=== PATIENT | male | born 1945 | race Caucasian/White ===

== ENCOUNTER 2018-12-26 21:52 | Inpatient (IN) | payer MEDICARE, OTHER, SELFPAY ==
[2018-12-26 21:55] VITALS: BP 149/80; PULSE 70; RESP 15; TEMP 36.5; O2SAT 99; BMI 25.8
--- NOTE | 2018-12-26 21:58 | DI.RAD.S_ITS ---
PROCEDURE: XR HIP W PEL IF DONE RT 2V INDICATIONS: right hip pain after fall TECHNIQUE: AP pelvis with lateral view(s) of the right hip. COMPARISON: None. FINDINGS: Bones: No dislocations. Pelvic ring appears intact. No suspicious bony lesions. There is a transverse fracture across the right femoral neck, mildly angulated and slightly impacted. Soft tissues: The visualized bowel gas pattern is normal. No suspicious soft tissue calcifications. IMPRESSION: The acute transverse right femoral neck fracture. Orthopedic consultation has been obtained. Dictated by: Aniceto Kimball M.D. on 12/27/2018 at 8:22 Approved by: Aniceto Kimball M.D. on 12/27/2018 at 8:26
--- NOTE | 2018-12-26 22:27 | ED.LOWEXIN ---
HPI - Extremity Injury (Lower) General Chief Complaint: Extremity Injury, Lower Stated Complaint: RT HIP PAIN, UNABLE TO STAND Time Seen by Provider: 12/26/18 22:27 Source: patient and family Limitations: no limitations History of Present Illness HPI Narrative: 73-year-old male nonsmoker, very healthy male presents with his in the chief complaint of severe right hip pain. patient plays basketball multiple times a week and fell onto his right hip this evening while playing. He now has excruciating pain with range of motion and cannot put any weight on his leg. Even when laying flat any attempts at flexing, extending or internal or external rotation resulted in excruciating pain. He denies any other injury. He denies numbness, tingling or weakness. He denies fever or shaking chills. MD complaint: hip injury Onset (ago): hour(s) Type of Injury: blunt Place: other Severity: severe Relieving factors: immobilization and rest Exacerbating factors: weight bearing, movement and palpation Context: fall and direct blow Associated symptoms: unable to bear weight Other symptoms: none Related Data Home Medications Medication Instructions Recorded Confirmed betamethasone dipropionate 1 brunilda TOPICAL BID PRN 12/27/18 12/27/18 Allergies Allergy/AdvReac Type Severity Reaction Status Date / Time No Known Drug Allergies Allergy Verified 12/26/18 23:36 Review of Systems Constitutional Denies chills, Denies fever(s), Denies lethargy and Denies weakness Eyes Denies change in vision, Denies eye discharge, Denies irritation and Denies loss of vision ENT Ears, Nose, Mouth, and Throat: Denies change in voice, Denies neck pain and Denies sore throat Cardiovascular Denies chest pain, Denies irregular heart rhythm, Denies lightheadedness, Denies palpitations, Denies dyspnea, Denies dyspnea on exertion and Denies orthopnea Respiratory Denies cough, Denies dyspnea, Denies dyspnea on exertion and Denies wheezing Gastrointestinal Gastrointestinal: Denies abdominal pain, Denies change in bowel habits, Denies diarrhea, Denies nausea and Denies vomiting Genitourinary Denies hematuria, Denies flank pain, Denies urinary incontinence and Denies urinary urgency Musculoskeletal Reports limited range of motion and Denies neck pain Integumentary/Breasts Denies pruritus, Denies erythema, Denies rash and Denies wounds Neurologic Denies confusion, Denies loss of vision and Denies weakness Psychiatric Denies anxiety, Denies confusion, Denies depression, Denies homicidal ideation and Denies suicidal ideation Endocrine Denies palpitations Hematologic/Lymphatic Denies easy bruising Allergic/Immunologic Denies wheezing [facility] Medical History Eczema (Chronic) Migraines (Chronic ~1979) Chicken pox (Resolved ~1952) Surgical History Anesthesia (Resolved) Status post colonoscopy Status post hernia repair (~1960) Status post laparoscopy (~1979) Status post laparoscopy (~1999) Family History (Updated 09/22/16 @ 00:00 by Conversion Provider) Father Cancer Heart disease Mother Hypertension High cholesterol Social History household members: spouse Smoking Status: Never smoker alcohol intake: never Family History Father Cancer Heart disease Mother Hypertension High cholesterol Social History household members: spouse Smoking Status: Never smoker alcohol intake: never Exam Narrative Exam Narrative: GENERAL: 73-year-old male, appears younger than stated age, resting comfortably HEAD: Atraumatic. Normocephalic. No temporal or scalp tenderness. EYES: Pupils equal round and reactive. Extraocular motions intact. No scleral icterus. No injection or drainage. ENT: Nose without bleeding, purulent drainage or septal hematoma. Throat without erythema, tonsillar hypertrophy or exudate. Uvula midline. Airway patent. NECK: Trachea midline. No JVD or lymphadenopathy. Supple, nontender, no meningeal signs. CARDIOVASCULAR: Regular rate and rhythm without murmurs, gallops, or rubs. RESPIRATORY: Clear to auscultation. Breath sounds equal bilaterally. No wheezes, rales, or rhonchi. GASTROINTESTINAL: Abdomen soft, non-tender, nondistended. No hepato-splenomegaly, or palpable masses. No guarding. EXTREMITIES: No shortening or external rotation but severe pain to palpation of right hip. This is closed, isolated and neurovascularly intact BACK: Nontender without deformity or crepitance. No flank tenderness. NEURO: AOx3. SKIN: No rash or erythema. Initial Vital Signs Initial Vital Signs: Vital Signs Temperature 97.7 F 12/26/18 21:55 Pulse Rate 70 12/26/18 21:55 Respiratory Rate 15 12/26/18 21:55 Blood Pressure 149/80 H 12/26/18 21:55 Pulse Oximetry 99 12/26/18 21:55 Course Orders Ordered: ED Orders 12/26/18 21:58 XR hip w pel if done RT 2V Stat 12/26/18 22:55 Basic Metabolic Panel Stat Complete Blood Count AUTO DIFF Stat Prothrombin Time INR Stat 12/27/18 00:04 Consult to Orthopedic Surgery Routine XR chest 1V Stat 12/27/18 05:00 EKG-12 Lead Stat Alprazolam (Xanax) 0.125 mg PO BEDTIME PRN PRN Reason: Insomnia Last Admin: 12/27/18 02:10 Dose: 0.125 mg Sodium Chloride (Normal Saline 0.9%) 1,000 mls @ 125 mls/hr IV CONT JEAN-PIERRE Last Admin: 12/27/18 00:20 Dose: 125 mls/hr HYDROMORPHONE OPERATIONS MANAGER/COORDINATOR (6MG/30ML) (Dilaudid Medical Research Associate (6mg/30ml)) 6 mg in 30 mls @ 0 mls/hr IV Q8HR PRN PRN Reason: Pain, Severe (7-10) Last Admin: 12/27/18 00:24 Dose: 0 mls/hr Naloxone HCl (Narcan) 0.2 mg IV Q2MIN PRN; Protocol PRN Reason: Opiate Reversal Ondansetron HCl (Zofran) 4 mg IV Q4HR PRN PRN Reason: Nausea And Vomiting Consultations Consultation #1: call to Dr. Varela, he has viewed images. I was on phone with another provider, arranging for transfer to another hospital and was unable to speak to him. Consultation #2: Call to Dr. Aparicio, [place] for provider backshoe person for Dr. Anne. He is happy to accept patient. Eventual call to Dr. Mario whom is correct provider backshoe person for Dr. Anne Vital Signs - 8 hr 12/26/18 21:55 12/26/18 23:05 12/26/18 23:30 Temperature 97.7 F Pulse Rate 70 74 76 Respiratory Rate 15 18 16 Blood Pressure 149/80 H Blood Pressure [Left Arm] 152/74 H 151/71 H Pulse Oximetry 99 99 96 04/10/19 00:32 Temperature 98.8 F Pulse Rate 76 Respiratory Rate 16 Blood Pressure 144/70 H Blood Pressure [Left Arm] Pulse Oximetry 98 MDM - Extremity Injury (Lower) Lab Data Result diagrams: 12/26/18 22:55 12/26/18 22:55 Lab Results 12/26/18 12/26/18 12/26/18 Range/Units 22:55 22:55 22:55 WBC 10.4 (4.5-11.0) X10^3/uL RBC 5.12 (4.5-5.9) X10^6/uL Hgb 15.8 (13.5-17.5) g/dL Hct 45.4 (41-53) % MCV 88.8 (80-100) fL MCH 30.8 (26-34) PG MCHC 34.7 (30-36) % RDW 14.0 (11.6-14.8) % Plt Count 140 L (150-400) X10^3/uL Neut % (Auto) 77.2 H (50-75) % Lymph % (Auto) 12.8 L (25-40) % [place] % (Auto) 8.3 (3-14) % Eos % (Auto) 1.3 L (2-4) % Baso % (Auto) 0.4 (0-2) % Neut # (Auto) 8000 H (0067-2063) /uL Lymph # (Auto) 1300 (2789-6844) /uL [place] # (Auto) 900 (0-900) /uL Eos # (Auto) 100 (0-450) /uL Baso # (Auto) 0 (0-100) /uL PT 10.8 (10.1-12.7) SECONDS INR 0.9 (0.9-1.3) Sodium 139 (137-145) mmol/L Potassium 4.7 (3.4-5.1) mmol/L Chloride 105 (98-107) mmol/L Carbon Dioxide 27 (22-32) mmol/L BUN 23 H (9-20) mg/dL Creatinine 0.80 (0.66-1.25) mg/dL Estimated GFR > 60.0 (>60) mL/min BUN/Creatinine Ratio 28.8 H (6-22) Glucose 105 (80-110) mg/dL Calcium 9.3 (8.4-10.2) mg/dL Imaging Data Hip Xray: Attestation: I personally reviewed and interpreted this imaging study as follows: My impression: R femoral neck fx Discharge Plan Departure Patient Disposition: Admitted As Inpatient Clinical Impression: Fracture of femur Qualifiers: Encounter type: initial encounter Femur location: neck Fracture type: closed Laterality: right Qualified Code(s): S72.001A - Fracture of unspecified part of neck of right femur, initial encounter for closed fracture Discharge Date/Time: 12/27/18 00:16 Interventions: ED Discharge Assessment Last Done: 12/27/18 00:10 Admit Date/Time: 12/26/18 23:35 Admit Provider: Len Aparicio
[2018-12-26 23:05] VITALS: BP 152/74; PULSE 74; RESP 18; O2SAT 99
[2018-12-26 23:10] LABS: Add Manual Diff / Slide Review NO; Basophils Absolute Auto 0 /uL (0-100); Basophils Percent Auto 0.4 % (0-2); Eosinophils Absolute Auto 100 /uL (0-450); Eosinophils Percent Auto 1.3 % (2-4); Hematocrit 45.4 % (41-53); Hemoglobin 15.8 g/dL (13.5-17.5); Lymphocytes Absolute Auto 1300 /uL (1100-4500); Lymphocytes Percent Auto 12.8 % (25-40); Mean Corpuscular HGB Conc 34.7 % (30-36); Mean Corpuscular Hemoglobin 30.8 PG (26-34); Mean Corpuscular Volume 88.8 fL (80-100); Monocytes Absolute Auto 900 /uL (0-900); Monocytes Percent Auto 8.3 % (3-14); Neutrophils Absolute Auto 8000 /uL (1500-7000); Neutrophils Percent Auto 77.2 % (50-75); Platelet Count 140 X10^3/uL (150-400); Red Blood Cell Count 5.12 X10^6/uL (4.5-5.9); White Blood Cell Count 10.4 X10^3/uL (4.5-11.0)
[2018-12-26 23:11] LABS: INR 0.9 (0.9-1.3); Prothrombin Time 10.8 SECONDS (10.1-12.7)
[2018-12-26 23:15] LABS: BUN Creatinine Ratio 28.8 (6-22); Blood Urea Nitrogen 23 mg/dL (9-20); Calcium 9.3 mg/dL (8.4-10.2); Carbon Dioxide 27 mmol/L (22-32); Chloride 105 mmol/L (98-107); Estimated Glomerular Filt Rate > 60.0 mL/min (>60); Glucose 105 mg/dL (80-110); HEMOLYSIS 28 (0-50); Potassium 4.7 mmol/L (3.4-5.1); Sodium 139 mmol/L (137-145)
[2018-12-26 23:30] VITALS: BP 151/71; PULSE 76; RESP 16; O2SAT 96
[2018-12-27] VITALS (21 sets, daily range): BP systolic 115–167; BP diastolic 58–73; PULSE 61–90; RESP 10–20; TEMP 35.7–37.6; O2SAT 94–100; BMI 25.9
--- NOTE | 2018-12-27 | DI.RAD.S_ITS ---
PROCEDURE: XR HIP W PEL IF DONE RT 2V INDICATIONS: RIGHT HIP LISSA SCREW PLACEMENT TECHNIQUE: 2 view(s) of the hip acquired. COMPARISON: [facility], CR, XR HIP W PEL IF DONE RT 2V, 12/26/2018, 22:05. FINDINGS: Imaging utilized for pinning of a right femoral neck fracture with 3 cancellous screws. No evidence of hardware failure or loosening. Upper appearance. IMPRESSION: Expected operative appearance of femoral neck ORIF. Dictated by: Man Pulliam M.D. on 12/27/2018 at 18:43 Approved by: Man Pulliam M.D. on 12/27/2018 at 18:44
--- NOTE | 2018-12-27 00:04 | DI.RAD.S_ITS ---
PROCEDURE: XR CHEST 1V INDICATIONS: pre op TECHNIQUE: One view of the chest was acquired. COMPARISON: None. FINDINGS: Surgical changes and devices: None. Lungs and pleura: Lungs are near-normal, with a small degree of interstitial prominence bilaterally perhaps reflecting prior smoking history versus age related pulmonary degenerative change.. No pleural effusions or pneumothorax. Mediastinum: Mediastinal contours appear normal. Heart size is normal. Bones and chest wall: No suspicious bony lesions. Overlying soft tissues appear unremarkable. IMPRESSION: Very mild interstitial prominence, no pneumonia or neoplasm found, no contraindication to surgical intervention. Dictated by: Aniceto Kimball M.D. on 12/27/2018 at 8:21 Approved by: Aniceto Kimball M.D. on 12/27/2018 at 8:22
[2018-12-27] MEDS: SODIUM CHLORIDE 0.9% 1,000 ML 125 ML IV ×2 (00:20→15:52)
[2018-12-27] MEDS: HYDROMORPHONE PCA (6MG/30ML) 6 MG/30 ML PCA.VIAL IV (00:24)
[2018-12-27] MEDS: ALPRAZolam 0.25 MG TABLET 0.125 MG PO (02:10)
--- NOTE | 2018-12-27 02:13 | PC.ADMIT ---
Addendum entered by Gerda Grossman R.N. 12/27/18 05:51: BRIDGE DESIGN ENGINEER reports patient complaining of nausea. When talking to patient he reports he starting having increased salivation causing him to think he would have emesis but symptom now resolved. Does complain of dry mouth so provided mouth swabs due to NPO status. States pain is very tolerable at 1/10 and has used 3.4mg of Dilaudid since admission. Does state he is feeling dizzy this morning so discussed backing off on pain medication but not so that he is unable to tolerate the pain. Provided ice pack for comfort. Original Note: 0020 Patient admitted to room 209 per stretcher from ER. Reports he tripped while playing basketball and now has a right hip fx. Patient is alert and oriented but TEJON and bilateral hearing aids are at home. Breath sounds CTA with RA sat of 98%. HRR with BP of 144/70. Denies nausea. BT present and abdomen is soft. Currently with indwelling catheter which is draining clear renetta urine. Able to shift self to position of comfort but unable to tolerate lying on either side for any length of time. Complains of 2/10 right hip pain radiating into groin. FORGING ENGINEER initiated and patient instructed in use of FORGING ENGINEER; verbalizes understanding. Ice applied for additional comfort. CMS is intact. Has some flat, crystal lesions on bilateral anterior shins. Reports eczema intermittently at base of skull posteriorly but none noted at this time. Has hx of painless migraines which presents with an aura followed by numbness in fingers of left hand. Fall risk score is high; bed alarm is activated. Instructed in use of bed controls and call light. 0200 Patient requests Xanax to help with insomnia (has used in past when on airline flights and needed to sleep). Order obtained from Dr Mario via Dr Wisdom. [email or web address] [facility] Admission Note: The patient,Heraclio Mcdowell,73 y/o, was given written information regarding hospital policies, unit procedures and contact persons. Patient's smoking status: Never smoker. Vital Signs - 8 hr 12/26/18 21:55 12/26/18 23:05 12/26/18 23:30 Temperature 97.7 F Pulse Rate 70 74 76 Respiratory Rate 15 18 16 Blood Pressure 149/80 H Blood Pressure [Left Arm] 152/74 H 151/71 H Pulse Oximetry 99 99 96 12/27/18 00:32 Temperature 98.8 F Pulse Rate 76 Respiratory Rate 16 Blood Pressure 144/70 H Blood Pressure [Left Arm] Pulse Oximetry 98
--- NOTE | 2018-12-27 04:40 | ED_ITS ---
HPI - Extremity Injury (Lower) General Chief Complaint: Extremity Injury, Lower Stated Complaint: RT HIP PAIN, UNABLE TO STAND Time Seen by Provider: 12/26/18 22:27 Source: patient and family Limitations: no limitations History of Present Illness HPI Narrative: 73-year-old male nonsmoker, very healthy male presents with his in the chief complaint of severe right hip pain. patient plays basketball multiple times a week and fell onto his right hip this evening while playing. He now has excruciating pain with range of motion and cannot put any weight on his leg. Even when laying flat any attempts at flexing, extending or internal or external rotation resulted in excruciating pain. He denies any other injury. He denies numbness, tingling or weakness. He denies fever or shaking chills. MD complaint: hip injury Onset (ago): hour(s) Type of Injury: blunt Place: other Severity: severe Relieving factors: immobilization and rest Exacerbating factors: weight bearing, movement and palpation Context: fall and direct blow Associated symptoms: unable to bear weight Other symptoms: none Related Data Home Medications Medication Instructions Recorded Confirmed betamethasone dipropionate 1 brunilda TOPICAL BID PRN 12/27/18 12/27/18 Allergies Allergy/AdvReac Type Severity Reaction Status Date / Time No Known Drug Allergies Allergy Verified 12/26/18 23:36 Review of Systems Constitutional Denies chills, Denies fever(s), Denies lethargy and Denies weakness Eyes Denies change in vision, Denies eye discharge, Denies irritation and Denies loss of vision ENT Ears, Nose, Mouth, and Throat: Denies change in voice, Denies neck pain and Denies sore throat Cardiovascular Denies chest pain, Denies irregular heart rhythm, Denies lightheadedness, Denies palpitations, Denies dyspnea, Denies dyspnea on exertion and Denies orthopnea Respiratory Denies cough, Denies dyspnea, Denies dyspnea on exertion and Denies wheezing Gastrointestinal Gastrointestinal: Denies abdominal pain, Denies change in bowel habits, Denies diarrhea, Denies nausea and Denies vomiting Genitourinary Denies hematuria, Denies flank pain, Denies urinary incontinence and Denies urinary urgency Musculoskeletal Reports limited range of motion and Denies neck pain Integumentary/Breasts Denies pruritus, Denies erythema, Denies rash and Denies wounds Neurologic Denies confusion, Denies loss of vision and Denies weakness Psychiatric Denies anxiety, Denies confusion, Denies depression, Denies homicidal ideation and Denies suicidal ideation Endocrine Denies palpitations Hematologic/Lymphatic Denies easy bruising Allergic/Immunologic Denies wheezing [facility] Medical History Eczema (Chronic) Migraines (Chronic ~1979) Chicken pox (Resolved ~1952) Surgical History Anesthesia (Resolved) Status post colonoscopy Status post hernia repair (~1960) Status post laparoscopy (~1979) Status post laparoscopy (~1999) Family History (Updated 09/22/16 @ 00:00 by Conversion Provider) Father Cancer Heart disease Mother Hypertension High cholesterol Social History household members: spouse Smoking Status: Never smoker alcohol intake: never Family History Father Cancer Heart disease Mother Hypertension High cholesterol Social History household members: spouse Smoking Status: Never smoker alcohol intake: never Exam Narrative Exam Narrative: GENERAL: 73-year-old male, appears younger than stated age, resting comfortably HEAD: Atraumatic. Normocephalic. No temporal or scalp tenderness. EYES: Pupils equal round and reactive. Extraocular motions intact. No scleral icterus. No injection or drainage. ENT: Nose without bleeding, purulent drainage or septal hematoma. Throat without erythema, tonsillar hypertrophy or exudate. Uvula midline. Airway patent. NECK: Trachea midline. No JVD or lymphadenopathy. Supple, nontender, no meningeal signs. CARDIOVASCULAR: Regular rate and rhythm without murmurs, gallops, or rubs. RESPIRATORY: Clear to auscultation. Breath sounds equal bilaterally. No wheezes, rales, or rhonchi. GASTROINTESTINAL: Abdomen soft, non-tender, nondistended. No hepato- splenomegaly, or palpable masses. No guarding. EXTREMITIES: No shortening or external rotation but severe pain to palpation of right hip. This is closed, isolated and neurovascularly intact BACK: Nontender without deformity or crepitance. No flank tenderness. NEURO: AOx3. SKIN: No rash or erythema. Initial Vital Signs Initial Vital Signs: Vital Signs Temperature 97.7 F 12/26/18 21:55 Pulse Rate 70 12/26/18 21:55 Respiratory Rate 15 12/26/18 21:55 Blood Pressure 149/80 H 12/26/18 21:55 Pulse Oximetry 99 12/26/18 21:55 Course Orders Ordered: ED Orders 12/26/18 21:58 XR hip w pel if done RT 2V Stat 12/26/18 22:55 Basic Metabolic Panel Stat Complete Blood Count AUTO DIFF Stat Prothrombin Time INR Stat 12/27/18 00:04 Consult to Orthopedic Surgery Routine XR chest 1V Stat 12/27/18 05:00 EKG-12 Lead Stat Alprazolam (Xanax) 0.125 mg PO BEDTIME PRN PRN Reason: Insomnia Last Admin: 12/27/18 02:10 Dose: 0.125 mg Sodium Chloride (Normal Saline 0.9%) 1,000 mls @ 125 mls/hr IV CONT JEAN-PIERRE Last Admin: 12/27/18 00:20 Dose: 125 mls/hr HYDROMORPHONE SOFTWARE QUALITY ASSURANCE ENGINEER (6MG/30ML) (Dilaudid Broach Operator (6mg/30ml)) 6 mg in 30 mls @ 0 mls/hr IV Q8HR PRN PRN Reason: Pain, Severe (7-10) Last Admin: 12/27/18 00:24 Dose: 0 mls/hr Naloxone HCl (Narcan) 0.2 mg IV Q2MIN PRN; Protocol PRN Reason: Opiate Reversal Ondansetron HCl (Zofran) 4 mg IV Q4HR PRN PRN Reason: Nausea And Vomiting Consultations Consultation #1: call to Dr. Varela, he has viewed images. I was on phone with another provider, arranging for transfer to another hospital and was unable to speak to him. Consultation #2: Call to Dr. Aparicio, [place] for provider extrusion line operator for Dr. Anne. He is happy to accept patient. Eventual call to Dr. Mario whom is correct provider extrusion line operator for Dr. Anne Vital Signs - 8 hr 12/26/18 21:55 12/26/18 23:05 12/26/18 23:30 Temperature 97.7 F Pulse Rate 70 74 76 Respiratory Rate 15 18 16 Blood Pressure 149/80 H Blood Pressure [Left Arm] 152/74 H 151/71 H Pulse Oximetry 99 99 96 04/10/19 00:32 Temperature 98.8 F Pulse Rate 76 Respiratory Rate 16 Blood Pressure 144/70 H Blood Pressure [Left Arm] Pulse Oximetry 98 MDM - Extremity Injury (Lower) Lab Data Result diagrams: 12/26/18 22:55 12/26/18 22:55 Lab Results 12/26/18 12/26/18 12/26/18 Range/Units 22:55 22:55 22:55 WBC 10.4 (4.5-11.0) X10^3/uL RBC 5.12 (4.5-5.9) X10^6/uL Hgb 15.8 (13.5-17.5) g/dL Hct 45.4 (41-53) % MCV 88.8 (80-100) fL MCH 30.8 (26-34) PG MCHC 34.7 (30-36) % RDW 14.0 (11.6-14.8) % Plt Count 140 L (150-400) X10^3/uL Neut % (Auto) 77.2 H (50-75) % Lymph % (Auto) 12.8 L (25-40) % [place] % (Auto) 8.3 (3-14) % Eos % (Auto) 1.3 L (2-4) % Baso % (Auto) 0.4 (0-2) % Neut # (Auto) 8000 H (0894-2991) /uL Lymph # (Auto) 1300 (1686-0989) /uL [place] # (Auto) 900 (0-900) /uL Eos # (Auto) 100 (0-450) /uL Baso # (Auto) 0 (0-100) /uL PT 10.8 (10.1-12.7) SECONDS INR 0.9 (0.9-1.3) Sodium 139 (137-145) mmol/L Potassium 4.7 (3.4-5.1) mmol/L Chloride 105 (98-107) mmol/L Carbon Dioxide 27 (22-32) mmol/L BUN 23 H (9-20) mg/dL Creatinine 0.80 (0.66-1.25) mg/dL Estimated GFR > 60.0 (>60) mL/min BUN/Creatinine Ratio 28.8 H (6-22) Glucose 105 (80-110) mg/dL Calcium 9.3 (8.4-10.2) mg/dL Imaging Data Hip Xray: Attestation: I personally reviewed and interpreted this imaging study as follows: My impression: R femoral neck fx Discharge Plan Departure Patient Disposition: Admitted As Inpatient Clinical Impression: Fracture of femur Qualifiers: Encounter type: initial encounter Femur location: neck Fracture type: closed Laterality: right Qualified Code(s): S72.001A - Fracture of unspecified part of neck of right femur, initial encounter for closed fracture Discharge Date/Time: 12/27/18 00:16 Interventions: ED Discharge Assessment Last Done: 12/27/18 00:10 Admit Date/Time: 12/26/18 23:35 Admit Provider: Len Aparicio
--- NOTE | 2018-12-27 06:48 | P.CONS_ITS ---
History of Present Illness Date Patient Seen: 12/27/18 Time Patient Seen: 06:30 Chief complaint: RT HIP PAIN, UNABLE TO STAND Reason for consult: Right hip and groin pain Requesting provider: Guanaco Wisdom Narrative: Patient is a healthy 73-year-old gentleman who was playing basketball last evening. He attempted to drive on a larger opponent, ran into the opponent and fell down landing directly on his right hip. He was unable to arise and was taken to [facility] Emergency room for evaluation. Radiographs there revealed a minimally displaced right femoral neck fracture. Orthopedic consultation has been obtained for definitive management of the fracture. [facility] Medical History Eczema (Chronic) Migraines (Chronic ~1979) Chicken pox (Resolved ~1952) Surgical History Anesthesia (Resolved) Status post colonoscopy Status post hernia repair (~1960) Status post laparoscopy (~1979) Status post laparoscopy (~1999) Family History Father Cancer Heart disease Mother Hypertension High cholesterol Social History household members: spouse Smoking Status: Never smoker alcohol intake: never Family History Father Cancer Heart disease Mother Hypertension High cholesterol Social History household members: spouse Smoking Status: Never smoker alcohol intake: never Meds Home Medications Medication Instructions Recorded Confirmed Type betamethasone dipropionate 1 brunilda TOPICAL BID PRN 12/27/18 12/27/18 History Allergies Allergy/AdvReac Type Severity Reaction Status Date / Time No Known Drug Allergies Allergy Verified 12/26/18 23:36 Review of Systems Review of Systems All systems reviewed & are unremarkable except as noted in HPI and below Musculoskeletal Comments: Right groin pain and inability to walk. Exam Vital Signs (past 8 hours): - 12/26/18 23:05 12/26/18 23:30 12/27/18 00:32 Temperature 98.8 F Pulse Rate 74 76 76 Respiratory Rate 18 16 16 Blood Pressure 144/70 H Blood Pressure [Left Arm] 152/74 H 151/71 H Pulse Oximetry 99 96 98 12/27/18 05:41 Temperature 98.4 F Pulse Rate 70 Respiratory Rate 16 Blood Pressure 127/69 Blood Pressure [Left Arm] Pulse Oximetry 94 Oxygen Delivery Method Room Air Oxygen Flow Rate 0 Narrative Exam Narrative: Skin over the proposed incision sites on the right hip is intact. There is pain with logroll of the right hip. Calf is soft. Light touch and motion are intact in the right foot. Length and rotation of the right lower extremity appear to be normal. Objective Labs Result Diagrams: 12/26/18 22:55 12/26/18 22:55 Labs: Laboratory Results - last 24 hr 12/26/18 12/26/18 12/26/18 22:55 22:55 22:55 WBC 10.4 RBC 5.12 Hgb 15.8 Hct 45.4 MCV 88.8 MCH 30.8 MCHC 34.7 RDW 14.0 Plt Count 140 L Neut % (Auto) 77.2 H Lymph % (Auto) 12.8 L [place] % (Auto) 8.3 Eos % (Auto) 1.3 L Baso % (Auto) 0.4 Neut # (Auto) 8000 H Lymph # (Auto) 1300 [place] # (Auto) 900 Eos # (Auto) 100 Baso # (Auto) 0 PT 10.8 INR 0.9 Sodium 139 Potassium 4.7 Chloride 105 Carbon Dioxide 27 BUN 23 H Creatinine 0.80 Estimated GFR > 60.0 BUN/Creatinine Ratio 28.8 H Glucose 105 Calcium 9.3 Radiographs taken December 26, 2018 at the [facility] emergency room reveal a nondisplaced femoral neck fracture on the right. Assessment & Plan Assessment & Plan narrative: The patient is a healthy 73-year-old gentleman who injured himself during an athletic event yesterday. He has a minimally displaced femoral neck fracture on the right. This should be amenable to percutaneous treatment with cannulated screws. I have discussed the risks benefits and alternatives of surgery with him. Risks discussed included but were not limited to: Potential need for conversion to hemiarthroplasty, stiffness, infection, deep venous thrombosis, pulmonary embolism, stroke, myocardial infarction, permanent paralysis and . The patient is given his signed informed consent after this discussion. We will keep him NPO. The plan is to do the surgery later this afternoon pending the availability of the operating room and the conclusion of my outpatient clinic today. Time Spent With Patient Time with patient: 15-24 minutes
--- NOTE | 2018-12-27 09:35 | PC.NURSE ---
Discharge order written, Pt accompanied to private vehicle after d/c teaching from RN and PT.
--- NOTE | 2018-12-27 12:31 | CM.DANOTE ---
DCP/Assessment: Reviewed chart. Patient is a 73yr old male admitted to [facility].. with right hip pain. PCP is Dr. Anne. Primary payor is 1)Medicare 2)[employer]. Met with patient explained CM/SW role. Patient reports that he resides with his spouse in [place] and is very [place] in all ADL's. Patient playing basketball with group when he discovered increased right hip pain. Patient denies falling but does indicate that the pain brought him to his knees. Patient undergoing surgery today with Dr. Varela to repair right hip. Patient does not anticipate any d/c planning needs. FARM APPRAISER reports that CM team will continue to follow closely if needs were to arise and after surgery. Patient appreciative. P: Pending. CM team to follow closely. NKECHI Moore Discharge Planning/Care Management CM Discharge Assessment Start: 12/27/18 12:29 Freq: Status: Active Protocol: Document 12/27/18 12:30 KJS (Rec: 12/27/18 12:31 KJS [id number]) Discharge Planning Assessment Assigned Hose Seamer NKECHI Moore Contact Information Kathe Mcdowell (spouse) Advance Directives? No History Provided By Patient Prior Living Arrangements House Household Members spouse Type of transporation used prior to Drives own vehicle admit Independent with ADL's Yes Is patient alert and oriented? Yes Caregiver for Another No Barriers to Discharge No Discharge Plan Home Transportation Arrangement Family to provide transport. Whiteboard Updated in Patient Room with Yes name and ext. # of Hose Seamer Review Status In Process Please Provide Date Initial DC 12/27/18 Assessment Was Performed Next Review Type Continued Stay Review
--- NOTE | 2018-12-27 13:16 | P.HP_ITS ---
History of Present Illness Date Patient Seen: 12/27/18 Time Patient Seen: 08:15 Chief complaint: RT HIP PAIN, UNABLE TO STAND Narrative: Right hip pain Patient admitted through the emergency room last night having experience fracture of the right hip. Patient has basically healthy and was doing his usual evening basketball competition. He felt well and had no prior symptoms. He went to make a basket ran into a large defender was knocked over landed directly on the lateral aspect of his right hip experience extreme pain in. Sofia unable to walk without assistance and over the course of next several minutes pain did not get better affect got worse so he was brought to the emergency room. He was evaluated in the emergency room and found to have a fracture of the right femoral neck. Telephone conversation with orthopedic surgeon recommended admission for anticipation of surgical repair. Patient otherwise is healthy is on no prescription medications. As stated he does have basketball comparatively on a regular basis.. Patient is nonsmoker has had relatively healthy diet. Patient History Medical History Eczema (Chronic) Migraines (Chronic ~1979) Chicken pox (Resolved ~1952) Surgical History Anesthesia (Resolved) Status post colonoscopy Status post hernia repair (~1960) Status post laparoscopy (~1979) Status post laparoscopy (~1999) Family History Father Cancer Heart disease Mother Hypertension High cholesterol Social History household members: spouse Smoking Status: Never smoker alcohol intake: never Family & Social History Family History Father Cancer Heart disease Mother Hypertension High cholesterol Social History: household members spouse Prior Living Arrangements House Safety & Behavioral: Feels Safe in Current Yes Environment Been Physically Hurt or No Threatened By a Person Suicidal Ideation Description None Tobacco & Substance use: Smoking Status Never smoker alcohol intake never alcohol intake frequency holiday/special occasion Substance Use Type does not use Meds Home Medications Medication Instructions Recorded Confirmed Type betamethasone dipropionate 1 brunilda TOPICAL BID PRN 12/27/18 12/27/18 History Allergies Allergy/AdvReac Type Severity Reaction Status Date / Time No Known Drug Allergies Allergy Verified 12/26/18 23:36 Review of Systems Review of Systems All systems reviewed & are unremarkable except as noted in HPI and below Exam Vital Signs (past 8 hours): - 12/27/18 05:41 12/27/18 07:30 12/27/18 11:30 Temperature 98.4 F 98.7 F 98.6 F Pulse Rate 70 75 74 Respiratory Rate 16 16 16 Blood Pressure 127/69 129/72 117/63 Pulse Oximetry 94 95 95 Oxygen Delivery Method Room Air Oxygen Flow Rate 0 Narrative Exam Narrative: Gen.: Skin: Warm well perfused. No prominent lesions. Nonicteric. HEENT: PERRL., normal EOM, external ears canals TMs normal, nasal mucosa normal and midline septum, oropharynx without lesions. Neck: Trachea midline. Thyroid nontender and not enlarged. Carotids without bruits. No lymphadenopathy Back: No obvious deformity or tenderness. Chest: Clear to P&A. Symmetric. CV: RRR no murmur or gallop. No JVD. Abdomen: No masses bruits tenderness or visceromegaly. Neuro: Cranial nerves II through XII grossly intact. Sensory and motor exams intact. Gait normal. Mental status: Intact for screening Extremities: No cyanosis clubbing or edema Musculoskeletal: No gross deformities Lymphatics: Negative for lymphadenopathy, supraclavicular axillary or inguinal Right hip is not examined patient has fair amount of discomfort in the right groin area Objective Labs Result Diagrams: 12/26/18 22:55 12/26/18 22:55 Labs: Laboratory Results - last 24 hr 12/26/18 12/26/18 12/26/18 22:55 22:55 22:55 WBC 10.4 RBC 5.12 Hgb 15.8 Hct 45.4 MCV 88.8 MCH 30.8 MCHC 34.7 RDW 14.0 Plt Count 140 L Neut % (Auto) 77.2 H Lymph % (Auto) 12.8 L [place] % (Auto) 8.3 Eos % (Auto) 1.3 L Baso % (Auto) 0.4 Neut # (Auto) 8000 H Lymph # (Auto) 1300 [place] # (Auto) 900 Eos # (Auto) 100 labs reviewed as above. X-ray report reviewed Baso # (Auto) 0 PT 10.8 INR 0.9 Sodium 139 Potassium 4.7 Chloride 105 Carbon Dioxide 27 BUN 23 H Creatinine 0.80 Estimated GFR > 60.0 BUN/Creatinine Ratio 28.8 H Glucose 105 Calcium 9.3 Assessment & Plan Assessment & Plan narrative: Number fracture right femoral neck. Patient good candidate for surgical repair. 2. Patient has a history of vitamin-D deficiency will get updated level. Discussed with Orthopedics were not there is some concern about osteoporosis 3. Postop physical therapy as per orthopedic service Quality VTE Deep Vein Thrombosis/Pulmonary Embolism Present on Admission: No
--- NOTE | 2018-12-27 13:50 | PT.IPTN ---
Surgery Performed Operation Date: 12/27/18 16:30 <No data on this case meets the specified criteria> Physical Therapy Treatment Note M3 PT-IP Subjective Start: 12/27/18 13:48 Freq: NEEDED Status: Active Protocol: Document 12/27/18 13:48 HH (Rec: 12/27/18 13:50 [id number]) Subjective Physical Therapy Visit Type Type Administrative Note Notes Patient undergoing surgery today with Dr. Varela to repair right hip at 1630. Reattempt PT tomorrow AM
[2018-12-27] MEDS: CEFAZOLIN 2 GM/100 ML FROZ.PIGGY IV (16:58)
--- NOTE | 2018-12-27 17:01 | SUR.HOLD ---
patient picked up from floor by Kenya Carter RN. Laguerre emptied to 625 ml clear yellow urine. Pleasant, cheerful. Did not have time for hold documentation.
--- NOTE | 2018-12-27 17:08 | SUR.PHASEII ---
Patient discharged to home via wheelchair with . Able to ambulate to bathroom with walker. Gait steady. Pain level improved to 3/10. BP unchanged. patient stated has history of HTN. No c/o nausea.
--- NOTE | 2018-12-27 17:23 | SUR.OPER ---
Head on pillow. Supine on fracture table with bilateral legs secured in traction. right arm across chest, left arm secured on padded arm board secured with sheet.
[2018-12-27] MEDS: LACTATED RINGERS 1,000 ML 42 ML IV (18:13)
[2018-12-27] MEDS: BUPIVACAINE 0.5% (PF) VIAL 30 ML INJ (18:17)
--- NOTE | 2018-12-27 18:27 | PM.OP.1 ---
Operative Date/Time/Diagnoses Date of procedure: 12/27/18 Time of procedure: 18:00 Pre-op diagnosis: Right closed nondisplaced femoral neck fracture Post-op diagnosis: same Procedure & Clinicians Procedure: Right hip percutaneous screw fixation of femoral neck fracture Same procedure as scheduled: Yes Indications: The patient is a 73-year-old athletic gentleman who fell while playing basketball last night. He injured his right hip and was unable to arise. He has agreed to fixation of his femoral neck fracture after discussion of the risks benefits and alternatives. Alternatives discussed include hemiarthroplasty. Risks discussed are extensively outlined in my consultation note. Surgeon: Surjit Varela Click Yes if Unassisted: Yes Anesthesia Type: General and Local Operative Notes Findings: Nondisplaced femoral neck fracture with appropriate position of 3 screws. Closure Type: primary Specimen(s): none sent Prosthetic devices, grafts, tissues, transplants, or devices: Three 7.3 mm cannulated Synthes screws, two with long threads, one with short threads. Applied: implant(s) Estimated Blood Loss (mL): 10 Blood products transfused: none Procedure in detail: The patient was seen in the preoperative area where we confirmed the right hip was the operative site and this was marked with my initials. He received preoperative antibiotics and was taken to the operating room on his hospital bed where he underwent induction with general anesthetic. He was then transferred onto the fracture table. The right leg was placed in a traction leg rincon, the left leg was placed in a 2nd traction leg rincon and abducted out of the way of the fluoroscopy. All pressure points were well-padded. The right leg was prepared over the lateral aspect of the thigh with ChloraPrep and an adherent drape was applied. Using fluoroscopy the upper and lower limits of the femoral neck were marked on the anterior skin of the thigh using a marking pen and a guide pin laid on the skin to delineate the area of the neck in the axis of the neck. Three guide pins were then placed through 1 cm incisions, in parallel fashion up the axis of the femoral neck into the femoral head. The position of all 3 pins was verified in the AP and lateral view. The pins were measured and approximately 5 mm subtracted from the length of each of the pins which were subchondral in position. The cannulated screws were then placed over the pins and tightened. The fracture crack could be visualized tightening down with the screws being tightened. The inferior and central screws had enough room to place long threaded screws, the anterior superior screw was close enough to the fracture site that a short threaded screw was used. the guide pins were removed. it was confirmed that there was no penetration of the femoral head by the screw tips by visualizing the femoral head in 15 degree increments from the AP to the lateral view. The wounds were then closed with 4 0 Monocryl and Steri-Strips. 10 mL of 0.5% Marcaine was injected into the soft tissues overlying the pin tracts. With dressings of sterile 4x4s and an adhesive dressing were applied. The patient was then transferred to the recovery room in good condition having tolerated the procedure well. Complications: none Condition: stable Disposition: PACU Plan for aftercare: The patient will be allowed to weightbear as tolerated. He will be maintained in the hospital until he is stable for discharge home or if necessary to a intermediate facility.
[2018-12-27] MEDS: HYDROMORPHONE 2 MG INJ 0.5 MG IV ×2 (18:35→18:40)
--- NOTE | 2018-12-27 19:17 | SUR.PHASEI ---
Pt arrived to OR with oral airway, pt awakened and it was d/c'ed upon arrival. pt medicated with dilaudid, pain became tolerable and report clled to [place]. Pt transported up to room 209 and left with harmony on and in stable condition. dressing remained c/d/i.
[2018-12-27] MEDS: LACTATED RINGERS 1,000 ML 125 ML IV (19:35)
--- NOTE | 2018-12-27 21:30 | SUR.PHASEI ---
Late entry: pt following commands, initially disoriented to time and place soon after awakened from surgery, reoriented and remained oriented x 4.
[2018-12-27] MEDS: ACETAMINOPHEN 325 MG TABLET 975 MG PO (21:48)
--- NOTE | 2018-12-27 23:47 | PC.NURSE ---
PT arrived at 191 from PACU. Pt A&OX3. 95%2L. no n/v. pain 10/29. pt comfortable in bed. lubin intact and patent. IVF infusing. R. hip dressing cdi. Pt did not eat dinner, but ate some apple sauce. call light in reach.bed alarm active.
[2018-12-28 00:47] VITALS: BP 158/63; PULSE 68; RESP 18; TEMP 36.7; O2SAT 94
[2018-12-28] MEDS: CEFAZOLIN 1 GM/50 ML FROZ.PIGGY IV ×2 (00:51→10:07)
--- NOTE | 2018-12-28 01:01 | PC.NURSE ---
Addendum entered by Gerda Grossman R.N. 12/28/18 06:03: Sat maintaining at 93% on RA. Continues to deny pain. Assisted to reposition q2h. Is totally oriented this morning. Original Note: Addendum entered by Gerda Grossman R.N. 12/28/18 04:24: O2 sat 97% on 1L/min so now placed on RA Original Note: Patient asleep and awakened for assessment; had to be told repetitively to open eyes before he would do so. Confused thinking RN is Kathe and that he is in a garage. Did not remember why he was in the hospital or that he had surgery. Was oriented to date and time. Breath sounds CTA with sat of 99% on 2L/min oxygen per NC so oxygen decreased to 1L/min and will continue to monitor for desats in attempt to wean off oxygen. Denies nausea. BT absent and does not know if he has passed flatus since return from surgery. Indwelling catheter is patent with clear yellow urine in bag. Dressing to right lateral upper thigh is CDI. Denies pain but ice applied for continued comfort. Needing assist to reposition so turned onto left side with pillow behind back; tries to adjust himself back onto back; verbalizes understanding of needing to be in different position. CMS is intact. SCD's applied to bilateral LE. Fall risk score is high and bed alarm is activated.
[2018-12-28] MEDS: LACTATED RINGERS 1,000 ML 125 ML IV (04:02)
[2018-12-28 04:03] VITALS: BP 120/70; PULSE 55; RESP 16; TEMP 36.5; O2SAT 97
[2018-12-28 06:02] VITALS: O2SAT 93
[2018-12-28 07:35] VITALS: O2SAT 93
[2018-12-28 07:51] LABS: Add Manual Diff / Slide Review NO; Basophils Absolute Auto 0 /uL (0-100); Basophils Percent Auto 0.1 % (0-2); Eosinophils Absolute Auto 0 /uL (0-450); Hematocrit 43.9 % (41-53); Hemoglobin 14.9 g/dL (13.5-17.5); Lymphocytes Absolute Auto 800 /uL (1100-4500); Lymphocytes Percent Auto 7.3 % (25-40); Mean Corpuscular HGB Conc 33.9 % (30-36); Mean Corpuscular Hemoglobin 30.6 PG (26-34); Mean Corpuscular Volume 90.3 fL (80-100); Monocytes Absolute Auto 600 /uL (0-900); Monocytes Percent Auto 5.9 % (3-14); Neutrophils Absolute Auto 9200 /uL (1500-7000); Neutrophils Percent Auto 86.7 % (50-75); Platelet Count 106 X10^3/uL (150-400); Red Blood Cell Count 4.87 X10^6/uL (4.5-5.9); Red Cell Distribution Width 14.3 % (11.6-14.8); White Blood Cell Count 10.6 X10^3/uL (4.5-11.0)
[2018-12-28 08:09] VITALS: BP 124/59; PULSE 56; RESP 15; TEMP 36.7; O2SAT 94
[2018-12-28 08:22] LABS: BUN Creatinine Ratio 21.4 (6-22); Blood Urea Nitrogen 15 mg/dL (9-20); Calcium 8.7 mg/dL (8.4-10.2); Carbon Dioxide 26 mmol/L (22-32); Chloride 102 mmol/L (98-107); Estimated Glomerular Filt Rate > 60.0 mL/min (>60); Glucose 131 mg/dL (80-110); HEMOLYSIS < 15 (0-50); Potassium 4.3 mmol/L (3.4-5.1); Sodium 138 mmol/L (137-145)
--- NOTE | 2018-12-28 09:58 | PM.DS.1 ---
History of Present Illness Date Patient Seen: 12/28/18 Time Patient Seen: 09:58 Chief complaint: RT HIP PAIN, UNABLE TO STAND Narrative: Hospital day 3, postop day 1 following right femoral neck fracture percutaneous pinning by Dr. Varela. Patient remained stable postoperatively. Pain control with Tylenol. He has not had any physical therapy yet. Patient is anticipating going home today. he does have help at home. Discharge Providers Date of admission: 12/26/18 23:35 Discharge Date: 12/28/18 Primary care physician: Murray Anne MD Consults: 12/27/18 00:04 Consult to Orthopedic Surgery Routine Comment: Consulting Provider: Surjit Varela Reason for consultation: Hip Fracture Has provider been notified: Yes 12/27/18 13:22 Consult to Physical Therapy Evaluate & Treat Comment: Physician Instructions: Evaluate and Treat 12/27/18 13:23 Consult to Physician Routine Comment: Consulting Provider: Surjit Varela Reason for consultation: hip fx Has provider been notified: Yes 12/27/18 19:12 Consult to Discharge Planning Routine Comment: Consult to Physical Therapy Evaluate & Treat Comment: Physician Instructions: Evaluate and Treat 12/28/18 09:51 Consult to Occupational Therapy Evaluate & Treat Comment: Physician Instructions: Evaluate and treat 12/28/18 09:57 Consult to Occupational Therapy Evaluate & Treat Comment: PO right femoral neck fracture perc. pinning, WBAT Physician Instructions: Evaluate and treat Discharge provider: Hector Ferguson PA-C Summary Discharge Diagnosis: Status post right femoral neck nondisplaced fracture with percutaneous pinning Hospital Course: Patient brought to hospital on 12/18/18 after sustaining injury to his right hip. he underwent percutaneous pinning of nondisplaced femoral neck fracture. he remained stable postoperatively. He progressed well with PT/OT and was ready for discharge home on postop day 1. Status at Discharge Cognitive/behavioral status at discharge: oriented Functional status at discharge: uses cane/walker Overall status at discharge: patient is progressing back to baseline Time Spent with Patient Less than 30 minutes Exam Vital Signs (past 8 hours): - 12/28/18 04:03 12/28/18 06:02 12/28/18 07:35 Temperature 97.7 F Pulse Rate 55 L Respiratory Rate 16 Blood Pressure 120/70 Pulse Oximetry 97 93 93 12/28/18 08:09 Temperature 98.1 F Pulse Rate 56 L Respiratory Rate 15 Blood Pressure 124/59 L Pulse Oximetry 94 Oxygen Delivery Method Room Air Oxygen Flow Rate 0 Narrative Exam Narrative: Alert, oriented no acute distress resting in bed. legs. Dressing to right lateral hip is dry without drainage or inflammation. No calf pain or swelling. Pulses symmetrical. Objective Labs Result Diagrams: 12/28/18 07:08 12/28/18 07:08 Labs: Laboratory Results - last 24 hr 12/28/18 12/28/18 07:08 07:08 WBC 10.6 RBC 4.87 Hgb 14.9 Hct 43.9 MCV 90.3 MCH 30.6 MCHC 33.9 RDW 14.3 Plt Count 106 L Neut % (Auto) 86.7 H Lymph % (Auto) 7.3 L [place] % (Auto) 5.9 Eos % (Auto) 0.0 L Baso % (Auto) 0.1 Neut # (Auto) 9200 H Lymph # (Auto) 800 L [place] # (Auto) 600 Eos # (Auto) 0 Baso # (Auto) 0 Sodium 138 Potassium 4.3 Chloride 102 Carbon Dioxide 26 BUN 15 Creatinine 0.70 Estimated GFR > 60.0 BUN/Creatinine Ratio 21.4 Glucose 131 H Calcium 8.7 Discharge Plan Discharge Plan Discharge Problem: Fracture of femur Patient Disposition: Home Discharge comment: Discharge home today after cleared by PT/OT. Apply CovRsite dressing to right hip incision. patient will need a walker and I recommended either [employer] or obtained through hospital PT. Discharge Med Rec/Prescriptions Prescriptions: New acetaminophen 325 mg Tablet 975 mg PO TID Qty: 30 RF: 0 enoxaparin [Lovenox] 40 mg/0.4 mL Syringe 40 mg subcut DAILY Qty: 9 RF: 0 hydrocodone-acetaminophen [Kiefer] 5-325 mg tablet 1 tab PO Q4-6H PRN (Reason: pain) Qty: 20 RF: 0 Continued betamethasone dipropionate 0.05 % ointment 1 brunilda Topical BID PRN (Reason: Itching) RF: 0 Follow up/Referrals: Murray Anne MD [Primary Care Provider] - Provider Discharge Instructions Diet: Diet as Tolerated Activity: Ambulate as tolerated. Use walker as needed. Cold/Heat Therapy: Cold pack to right hip as needed. Other treatments: Instructed patient on Lovenox injections. Skin/Wound/Dressing Care Report to your healthcare provider any signs of infection, such as:: chills, fever, night sweats, increased pain, unusual drainage and unusual redness Discharge Data Primary Care Provider: Murray Anne Attending Provider: Murray Anne Admit Date/Time: 12/26/18 23:35 Quality VTE Deep Vein Thrombosis/Pulmonary Embolism Present on Admission: No
[2018-12-28] MEDS: ACETAMINOPHEN 325 MG TABLET 975 MG PO ×2 (10:04→15:40)
[2018-12-28] MEDS: DOCUSATE 100 MG CAPSULE PO (10:04)
[2018-12-28] MEDS: SODIUM CHLORIDE 0.9% FLUSH 10 ML IV (10:07)
[2018-12-28] MEDS: ENOXAPARIN 40 MG/0.4 ML SYRINGE SUBCUT (10:08)
--- NOTE | 2018-12-28 10:11 | PT.IIE ---
Current Diagnoses Fracture of unspecified part of neck of right femur, initial encounter for closed fracture (12/26/18) Unspecified fracture of unspecified femur, initial encounter for closed fracture (12/26/18) Surgery Performed Operation Date: 12/27/18 16:30 Actual Procedures p ORIF Hip/Cannulated Screws(Right) - Surjit Varela MD Surgical History (Last Reviewed 12/27/18 @ 13:19 by Murray Anne MD) Anesthesia (Resolved) Status post colonoscopy Status post hernia repair (~1960) Status post laparoscopy (~1979) Status post laparoscopy (~1999) Medical History (Last Reviewed 12/27/18 @ 13:19 by Murray Anne MD) Eczema (Chronic) Migraines (Chronic ~1979) Chicken pox (Resolved ~1952) Physical Therapy Inpatient Evaluation/Re-Eval M1 PT/OT-IP Prior Functional Status Start: 12/27/18 13:48 Freq: NEEDED Status: Active Protocol: Document 12/28/18 10:11 AB (Rec: 12/28/18 12:48 AB [id number]) Medical Review Prior Functional Status Medical History Reviewed Yes Communication able to make needs known Mobility and Gait stated that he is independent with all mobilities and ambulation without AD Social History Household Members spouse Living Arrangements House Number of Floors (Floors) One Floor Number of Stairs To Enter/Railing? 14 steps to enter with bilateral wide rails and can only hold on to one rail at a time Home Environment High Toilet Tub/Shower Employment Status Retired Additional Social History Comment spouse will acquire a FWW for pt and son will put grab bars in the shower M2 PT-IP Current Condition Start: 12/27/18 13:48 Freq: NEEDED Status: Active Protocol: Document 12/28/18 10:11 AB (Rec: 12/28/18 12:48 AB [id number]) Physical Therapy Current Condition Current Condition Evaluation Date 12/28/18 Treatment Diagnosis s/p R hip percutaneous screw fixation for femoral neck fx; diff in walking Onset Date 12/26/18 Weight Bearing Status Weight Bearing Status Weight Bear as Tolerated M3 PT-IP Subjective Start: 12/27/18 13:48 Freq: NEEDED Status: Active Protocol: Document 12/28/18 10:11 AB (Rec: 12/28/18 12:48 AB [id number]) Subjective Physical Therapy Visit Type Type Initial Evaluation Visit Start Time 10:11 Visit Stop Time 10:58 Total Visit Minutes 47 Number of BUGGY RUNNER Visits 0 Physical Therapy Visit Comments Patient Comments pt agreeable to do PT Therapy Pain Assessment Pain When Pain Assessed At Rest Pain Present Pain Present Pain Reported Location Right Hip Intensity 2 Scale Used Numeric (1 - 10) Pain Management Techniques Apply Cold Re-positioning Timing of Activity with Medications M4 PT-IP Mobility and Gait Start: 12/27/18 13:48 Freq: NEEDED Status: Active Protocol: Document 12/28/18 10:11 AB (Rec: 12/28/18 12:48 AB [id number]) PT-Bed Mobility Assessment Supine to Sit Supine to Sit Standby Assistance PT-Transfer Assessment Equipment Transfer Assistive Device Gait Belt Front Wheeled Walker Orthotic/Prosthetic Devices or Brace: No Transfers Transfer Destination Toilet Transfer Technique pt ambulated to the toilet using FWW Transfer Ability Level of Assist Standby Assistance Contact Guard Assistance 1 Person Assistance Use of Upper Extremities Gait Assessment Gait Gait Assistance Required: Standby Assistance Contact Guard Assist Distance (Feet) 100 Able to Maintain Weight Bearing Status Yes During Gait Assistive Devices Assistive Device Gait Belt Front Wheeled Walker Orthotic/Prosthetic Devices or Brace: No Gait Deviations General Gait Pattern Antalgic Factors Limiting Gait Function Factors Limiting Gait Function Decreased Activity Tolerance Decreased Strength Limited Range of Motion Pain Poor Balance Comments Gait Comments pt completed ambulation using FWW 100 ft x 2 and initially requiring CGA but only requiring SBA with 2nd set of ambulation. Spouse educated on how to assist pt with ambulation and stair climbing Stair Climbing Assessment Evaluation Level of Assist On Stairs Contact Guard Assistance Devices Stair Climbing Assistive Devices Left Railing Right Railing Technique/Endurance Stair Climbing Direction Ascend and Descend Stair Climbing Technique Step to Step Number of Steps Climbed 3 Query Text: Stair Climbing Set # Repetitions (reps) 5 Comments Stair Climbing Comments pt completed up/down stairs using L rail ascending and then R rail descending requiring CGA. conducted caregiver training with spouse and spouse was able to assist pt safely PT-Balance Assessment Standing Balance and Reactions Static Standing Balance Ability Fair Dynamic Standing Balance Ability Fair Device Used FWW M5 PT-IP Objective Assessments Start: 12/27/18 13:48 Freq: NEEDED Status: Active Protocol: Document 12/28/18 10:11 AB (Rec: 12/28/18 12:48 AB [id number]) Orientation Orientation/Cognition Level of Alertness Alert Orientation Name Age Birthday Month Date Year Day of Week Place Situation Language Function Ability No Deficits Noted Safety Awareness Decreased Safety Awareness Memory Description Short Term Impaired Comments pt can be impulsive Gross Range of Motion Lower Extremity ROM Assessment Within Functional Limits Strength Lower Extremity Strength Assessment Right Impaired Knee 3+/5 Sensation Assessment Sensation Gross Sensation WNL Muscle Tone Muscle Tone WNL Yes M6 PT-IP Treatment Start: 12/27/18 13:48 Freq: NEEDED Status: Active Protocol: Document 12/28/18 10:11 AB (Rec: 12/28/18 12:48 AB [id number]) Physical Therapy Treatment Education Education Provided Precautions Weight Bearing Status Post-Op Packet Safety M7 PT-IP Assessment and Plan Start: 12/27/18 13:48 Freq: NEEDED Status: Active Protocol: Document 12/28/18 10:11 AB (Rec: 12/28/18 12:48 AB [id number]) PT Summary Assessment and Plan Potential Rehabilitation Potential Good Status of Condition at Evaluation Stable Summary Impairments Pain ROM Strength Balance Coordination Sensation Tone Cognition Bed Mobility Transfers Gait Activity Tolerance Assessment Summary pt requiring SBA to CGA with mobility. caregiver training conducted and spouse was able to assist safely. pt plans to go home with assist. informed pt regarding outpt PT and stated that he is not set up with one yet. informed pt to make appointments as soon as possilbe. informed nurse and stated that she can ask the doctor for outpt PT orders prior to d/c. Goals Bed Mobility Goal Independent Transfer Goal Independent Front Wheeled Walker Gait Goal Independent Front Wheel Walker Gait Distance 250 Days to Meet Goals 3 Frequency of Treatment Frequency Of Treatment Twice a Day Treatment Plan Physical Therapy Treatment Plan Bed Mobility Training Transfer Training Gait Training Therapeutic Exercise Balance Retraining Post Op Education Discharge Planning Hot or Cold Pack Neuromuscular Re-ed Coordination Retraining Manual Therapy Recommendations To Nursing Amount of Assist Needed Standby Assistance Discharge Recommendations PT Discharge Recommendations Home with Assistance Outpatient PT Equipment Needed for Home Before FWW: spouse will borrow one Discharge for pt
[2018-12-28] MEDS: OXYCODONE IR 5 MG TABLET PO ×2 (10:22→15:40)
[2018-12-28 11:11] VITALS: BP 122/33; PULSE 70; RESP 17; TEMP 36.4; O2SAT 92
--- NOTE | 2018-12-28 11:25 | OT.IP.EVAL ---
Current Diagnoses Fracture of unspecified part of neck of right femur, initial encounter for closed fracture (12/26/18) Unspecified fracture of unspecified femur, initial encounter for closed fracture (12/26/18) Surgery Performed Operation Date: 12/27/18 16:30 Actual Procedures p ORIF Hip/Cannulated Screws(Right) - Surjit Varela MD Past Medical History (Last Reviewed 12/27/18 @ 13:19 by Murray Anne MD) Eczema (Chronic) Migraines (Chronic ~1979) Chicken pox (Resolved ~1952) Surgical History (Last Reviewed 12/27/18 @ 13:19 by Murray Anne MD) Anesthesia (Resolved) Status post colonoscopy Status post hernia repair (~1960) Status post laparoscopy (~1979) Status post laparoscopy (~1999) Occupational Therapy Inpatient Evaluation/Re-Eval M1 PT/OT-IP Prior Functional Status Start: 12/28/18 19:53 Freq: NEEDED Status: Active Protocol: Document 12/28/18 11:25 PJAlejandra (Rec: 12/28/18 20:05 PJM [id number]) Medical Review Prior Functional Status Medical History Reviewed Yes Communication WNL Mobility and Gait Pt stated that he is independent with all mobilities and ambulation without AD. Pt very active and fx'd his hip in basketball game. Activities of Daily Living and IADL's Pt independent with all self care and he and his share can washer. Pt drives. 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 Supportive can provide 24 hr assist at d/c. Social History Household Members spouse Living Arrangements House Number of Floors (Floors) Two Floors Number of Stairs To Enter/Railing? 14 steps to enter with bilateral wide rails and can only hold on to one rail at a time; pt plans to stay on main level of home Home Environment High Toilet Tub/Shower Home Equipment Long Handled Sponge Employment Status Retired Additional Social History Comment spouse will acquire a FWW and transfer tub seat for pt M2 OT-IP Current Condition Start: 12/28/18 19:53 Freq: Status: Active Protocol: Document 12/28/18 11:25 PJAlejandra (Rec: 12/28/18 20:05 PJM [id number]) Occupational Therapy Current Condition Current Condition Evaluation Date 12/28/18 Treatment Diagnosis decreased self care/mobility s /p percutaneous pinning of R femoral neck fx Weight Bearing Status Weight Bearing Status Weight Bear as Tolerated Allowed Weight Bearing Amount (enter % RLE or #) (%) M3 OT- IP Subjective and Pain Start: 12/28/18 19:53 Freq: Status: Active Protocol: Document 12/28/18 11:25 PJM (Rec: 12/28/18 20:05 PJ [id number]) OT- Subjective Occupational Therapy Visit Type Type Initial Evaluation Visit Start Time 11:00 Visit Stop Time 11:25 Total Visit Minutes 25 Notes Pt's here for education this session Occupational Therapy Visit Comments Patient Comments I want to go home later today . Patient/Caregiver Goals to be able to play basketball and resume volunteer duties at [employer] OT Pain Assessment Pain When Pain Assessed After Treatment Pain Present Pain Present Pain Reported Location Right Hip Intensity 1 Scale Used Numeric (1 - 10) Description Aching Acute M4 OT- IP ADL's Start: 12/28/18 19:53 Freq: Status: Active Protocol: Document 12/28/18 11:25 PJM (Rec: 12/28/18 20:05 PJ [id number]) OT EQW-[id number]-Nddiand General Evaluation Self-Feeding Ability Independent OT ADL-Grooming Comments OT Grooming Comments to be assessed this PM OT ADL-Oral Care Comments Oral Care Comments to be assessed this PM OT ADL-Dressing Comments OT Dressing Comments to be assessed this PM OT ADL-Toileting Comments OT Toileting Comments to be assessed this PM, began education with pt/ re: bathroom safety equipt options OT ADL-Bathing Comments OT Bathing Comments to be assessed this PM; began education with pt/ re: bathroom safety equipt options , to obtain transfer tub seat for pt from [employer] today M5 OT- IP IADL's Start: 12/28/18 19:53 Freq: Status: Active Protocol: Document 12/28/18 11:25 PJM (Rec: 12/28/18 20:05 PJ [id number]) OT-Instrumental Activities of Daily Living Deficits IADL Deficits Identified Deficits Home Safety Awareness Awareness of Need for Assistance at Home Good Awareness Ability to Problem Solve Emergency Able to Problem Solve Situations Medication Management Medication Management No Deficits Identified Money Management Money Management No Deficits Identified Meal Preparation Meal Preparation Comments to assist until pt able Phlebotomy Technologist Phlebotomy Technologist Comments to assist until pt able Driving Driving Comments to assist until pt able M6 OT- IP Functional Cognition Start: 12/28/18 19:53 Freq: Status: Active Protocol: Document 12/28/18 11:25 PJM (Rec: 12/28/18 20:05 PJ [id number]) Cognitive Factors Limiting Selfcare Function Cognitive Ability Level of Alertness Alert Patient Orientation Name Age Birthday Month Date Year Day of Week Place Situation Attention Span Ability Capable of Focused Attention Capable of Sustained Attention Ability to Follow Commands Able to Follow Multi-Step Commands Memory Description No Deficits Noted Safety Awareness Underestimates Need for Assistance Problem Solving Ability No deficits Noted Cognitive Comments Cognitive Assessment Comments Cognition appears WNL, pt very anxious to increase his activity level OT- Vision and Hearing OT- Hearing Assessment OT- Hearing Assessment WFL OT- Vision Assessment Visual Acuity WFL M7 OT- IP Mobility and Balance Start: 12/28/18 19:53 Freq: Status: Active Protocol: Document 12/28/18 11:25 PJM (Rec: 12/28/18 20:05 PJ [id number]) OT-Transfer Assessment Comments Mobility Comments see P.T. notes OT- Gait Assessment Comments Gait Ability Comments see P.T. notes OT- Balance Assessment Comments Other Balance Tests/Deviations/Treatment see P.T. notes : M8 OT- IP Objective Assessments Start: 12/28/18 19:53 Freq: Status: Active Protocol: Document 12/28/18 11:25 PJM (Rec: 12/28/18 20:05 PJ [id number]) OT Gross Range of Motion Upper Extremity Range of Motion Assessment Within Functional Limits OT Strength Upper Extremity Strength Assessment Within Functional Limits Hand Pipe Bowl Paint Trimmer Strength Hand Dominance Right OT- Coordination Assessment Upper Extremity Finger to Nose Test Within Functional Limits OT-Muscle Tone Assessment Muscle Tone WNL Yes OT Sensation Assessment Comments Summary Comments BUE WNL Edema Edema Absent M9 OT- IP Assessment and Plan Start: 12/28/18 19:53 Freq: Status: Active Protocol: Document 12/28/18 11:25 PJM (Rec: 12/28/18 20:05 PJ [id number]) OT Summary Assessment and Plan Potential Rehabilitation Potential Excellent Analytic Complexity at Evaluation Low Summary OT Impairments Balance Functional Mobility Grooming Dressing Toileting Bathing Toilet Transfers Shower Transfers Assessment Summary Low complexity OT assessment completed on this very active 73 yr old male. Pt currently has mild performance deficits in functional mobility/ transfers per discussion with P.T. Plan one additional OT tx this PM, once pt has rested, for shower and ADL training prior to d/c home with 24 hr assist from supportive, capable . Goals Grooming Goal Independent Dressing Goal Independent Toileting Goal Independent Bathing Goal Standby Assistance Toilet Transfer Goal Independent Shower Transfer Goal Standby Assistance Tub/Shower Combination Tub Transfer Bench Patient/Caregiver Education Goal Demonstrate Energy Conservation and Pacing Caregiver Independent Assisting Patient Days to Meet Goals 1 Frequency of Treatment Frequency Of Treatment Twice a Day Treatment Plan OT Treatment Plan ADL Training Functional Mobility Patient/Family Education Discharge Planning Discharge Recommendations OT Discharge Recommendations Home with Assistance Home Equipment Needs transfer tub seat
--- NOTE | 2018-12-28 13:30 | OT.IP.TRT ---
Current Diagnoses Fracture of unspecified part of neck of right femur, initial encounter for closed fracture (12/26/18) Unspecified fracture of unspecified femur, initial encounter for closed fracture (12/26/18) Surgery Performed Operation Date: 12/27/18 16:30 Actual Procedures p ORIF Hip/Cannulated Screws(Right) - Surjit Varela MD Occupational Therapy Treatment Note M2 OT-IP Current Condition Start: 12/28/18 19:53 Freq: Status: Active Protocol: Document 12/28/18 11:25 PJM (Rec: 12/28/18 20:05 PJM [id number]) Occupational Therapy Current Condition Current Condition Evaluation Date 12/28/18 Treatment Diagnosis decreased self care/mobility s /p percutaneous pinning of R femoral neck fx Weight Bearing Status Weight Bearing Status Weight Bear as Tolerated Allowed Weight Bearing Amount (enter % RLE or #) (%) M3 OT- IP Subjective and Pain Start: 12/28/18 19:53 Freq: Status: Active Protocol: Document 12/28/18 13:30 PJM (Rec: 12/28/18 20:12 PJM [id number]) OT- Subjective Occupational Therapy Visit Type Type Treatment Note Visit Start Time 12:26 Visit Stop Time 13:30 Total Visit Minutes 64 Occupational Therapy Visit Comments Patient Comments I don't really have any pain. Patient/Caregiver Goals to go home today OT Pain Assessment Pain When Pain Assessed After Treatment Pain Present Pain Present Pain Reported Location Right Hip Intensity 0 Scale Used Numeric (1 - 10) M4 OT- IP ADL's Start: 12/28/18 19:53 Freq: Status: Active Protocol: Document 12/28/18 13:30 PJM (Rec: 12/28/18 20:12 PJM [id number]) OT PYT-Yozr-Ssirnsp General Evaluation Self-Feeding Ability Independent OT ADL-Grooming General Evaluation Grooming Ability Independent Areas Needing Assistance Combing/Brushing Hair Comments OT Grooming Comments standing at sink with FWW after shower OT ADL-Oral Care General Eval Oral Care Ability Independent Areas of Assistance Brushing Teeth Devices Oral Care Devices Toothbrush Comments Oral Care Comments standing at sink with FWW after shower OT ADL-Dressing General Eval Upper Body Dressing Ability Independent Lower Body Dressing Ability Independent Areas Needing Assistance Underpants/Brief Pants/Shorts Socks Shoes Comments OT Dressing Comments pt indep with lower body dressing after education re: dressing techniques; will wear slip on Birkenstocks; no AED needed; will assist PRN if pain increases OT ADL-Toileting General Evaluation Toileting Ability Independent Areas Needing Assistance Manage Clothing Perform Perineal Hygiene OT ADL-Bathing Bathing Type Bathing Type Shower General Evaluation Bathing Ability Standby Assistance Areas Needing Assistance Retrieving/Setting Up Items Devices Bathing Equipment Shower Chair with Arms Comments OT Bathing Comments Pt stood for about 50% of shower with no LOB noted, to provide SBA at home; provided education re: transfer tub seat use and shower curtain modifications with use of transfer tub bench . Recommend clamp on tub bar as pt progresses towards stepping over edge of tub. M5 OT- IP IADL's Start: 12/28/18 19:53 Freq: Status: Active Protocol: Document 12/28/18 11:25 PJM (Rec: 12/28/18 20:05 [facility] [id number]) OT-Instrumental Activities of Daily Living Deficits IADL Deficits Identified Deficits Home Safety Awareness Awareness of Need for Assistance at Home Good Awareness Ability to Problem Solve Emergency Able to Problem Solve Situations Medication Management Medication Management No Deficits Identified Money Management Money Management No Deficits Identified Meal Preparation Meal Preparation Comments to assist until pt able Chemical Milling Processor Chemical Milling Processor Comments to assist until pt able Driving Driving Comments to assist until pt able M6 OT- IP Functional Cognition Start: 12/28/18 19:53 Freq: Status: Active Protocol: Document 12/28/18 11:25 PJM (Rec: 12/28/18 20:05 [facility] [id number]) Cognitive Factors Limiting Selfcare Function Cognitive Ability Level of Alertness Alert Patient Orientation Name Age Birthday Month Date Year Day of Week Place Situation Attention Span Ability Capable of Focused Attention Capable of Sustained Attention Ability to Follow Commands Able to Follow Multi-Step Commands Memory Description No Deficits Noted Safety Awareness Underestimates Need for Assistance Problem Solving Ability No deficits Noted Cognitive Comments Cognitive Assessment Comments Cognition appears WNL, pt very anxious to increase his activity level OT- Vision and Hearing OT- Hearing Assessment OT- Hearing Assessment WFL OT- Vision Assessment Visual Acuity WFL M7 OT- IP Mobility and Balance Start: 12/28/18 19:53 Freq: Status: Active Protocol: Document 12/28/18 13:30 PJM (Rec: 12/28/18 20:12 PJM [id number]) OT-Transfer Assessment Sit to and From Stand Sit to and from Stand Independent 1 Person Assistance Transfers Transfer Ability Independent 1 Person Assistance Technique Transfer Destination Car Chair Shower Stall Toilet Transfer Technique Stand Step Pivot Devices Transfer Assistive Devices Front Wheeled Walker Comments Mobility Comments Provided education re: car transfer technique. OT- Gait Assessment Gait Gait Assistance Required: Independent Distance (Feet) 30 Assistive Devices Assistive Device Front Wheeled Walker OT- Balance Assessment Sitting Balance and Reactions Static Sitting Balance Ability Normal Dynamic Sitting Balance Ability Good Standing Balance and Reactions Static Standing Balance Ability Good Dynamic Standing Balance Ability Good M8 OT- IP Objective Assessments Start: 12/28/18 19:53 Freq: Status: Active Protocol: Document 12/28/18 11:25 PJM (Rec: 12/28/18 20:05 PJM [id number]) OT Gross Range of Motion Upper Extremity Range of Motion Assessment Within Functional Limits OT Strength Upper Extremity Strength Assessment Within Functional Limits Hand Brick Burner Head Strength Hand Dominance Right OT- Coordination Assessment Upper Extremity Finger to Nose Test Within Functional Limits OT-Muscle Tone Assessment Muscle Tone WNL Yes OT Sensation Assessment Comments Summary Comments BUE WNL Edema Edema Absent M9 OT- IP Assessment and Plan Start: 12/28/18 19:53 Freq: Status: Active Protocol: Document 12/28/18 13:30 PJM (Rec: 12/28/18 20:12 PJM [id number]) OT Summary Assessment and Plan Potential Rehabilitation Potential Excellent Summary Progress Towards Goals Safe For Discharge Goals Met Assessment Summary All OT education completed with pt today as described above. No further OT services needed. Pt will d/c home today with 24 hr assist for . Frequency of Treatment Frequency Of Treatment Discharge Discharge Recommendations OT Discharge Recommendations Home with Assistance
--- NOTE | 2018-12-28 16:27 | CM.DPNOTE ---
DC Note: Home today, w/family. Cleared by PA and therapy team for safe return home w/outpt therapy. No SW needs indicated. Pt eager to return home. NKECHI Kerr
[2018-12-31 21:24] LABS: 1 25 Dihydroxy Vitamin D 67 pg/mL (18-72)
== END 2018-12-28 16:00 | disposition home or self-care (01) | DRG 482 ==
LOC: ED 23:27 → AC 23:36
PROVIDERS: Orthopaedic Surgery; Admitting Provider Family Medicine; Emergency Provider Emergency Medicine; Family Provider Family Medicine; PCP Family Medicine; Visit Provider Family Medicine
PROC: 0QH634Z Insertion of Internal Fixation Device into Right Upper Femur, Percutaneous Approach (ICD-10-PCS; principal; 2018-12-27 16:30)
DX: S72.001A Fracture of unspecified part of neck of right femur, initial encounter for closed fracture (principal); W03.XXXA Other fall on same level due to collision with another person, initial encounter; Y93.67 Activity, basketball
CPT/HCPCS: 36415; 36591; 51701; 71045; 73502; 76000; 80048; 82652; 85025; 85610; 93005; 93010; 97116; 97161; 97165; 97535; 99222; 99283; 99284; J0690; J1100; J1170; J1650; J2405; J2704; J3010

== ENCOUNTER → 2019-01-09 17:16 | Outpatient (CLI) | payer MEDICARE, OTHER, SELFPAY ==
[2018-12-27 00:42] VITALS: BMI 25.9
[2019-01-09 18:52] LABS: Add Manual Diff / Slide Review NO; Basophils Absolute Auto 0 /uL (0-100); Basophils Percent Auto 0.4 % (0-2); Eosinophils Absolute Auto 200 /uL (0-450); Eosinophils Percent Auto 2.2 % (2-4); Hematocrit 47.2 % (41-53); Hemoglobin 15.8 g/dL (13.5-17.5); Lymphocytes Absolute Auto 2600 /uL (1100-4500); Lymphocytes Percent Auto 29.5 % (25-40); Mean Corpuscular HGB Conc 33.4 % (30-36); Mean Corpuscular Hemoglobin 30.3 PG (26-34); Monocytes Absolute Auto 1000 /uL (0-900); Monocytes Percent Auto 11.5 % (3-14); Neutrophils Absolute Auto 5000 /uL (1500-7000); Neutrophils Percent Auto 56.4 % (50-75); Platelet Count 190 X10^3/uL (150-400); Red Blood Cell Count 5.19 X10^6/uL (4.5-5.9); Red Cell Distribution Width 14.2 % (11.6-14.8); White Blood Cell Count 8.9 X10^3/uL (4.5-11.0)
== END ==
PROVIDERS: PCP Family Medicine; Visit Provider Family Medicine
DX: D69.6 Thrombocytopenia, unspecified (principal)
CPT/HCPCS: 36415; 85025

== ENCOUNTER → 2019-07-25 07:11 | Outpatient (CLI) | payer MEDICARE, OTHER, SELFPAY ==
[2018-12-27 00:42] VITALS: BMI 25.9
[2019-07-25 07:55] LABS: Add Manual Diff / Slide Review NO; Basophils Absolute Auto 0 /uL (0-100); Basophils Percent Auto 0.3 % (0-2); Eosinophils Absolute Auto 200 /uL (0-450); Eosinophils Percent Auto 1.9 % (2-4); Hematocrit 45.4 % (41-53); Hemoglobin 15.3 g/dL (13.5-17.5); Lymphocytes Absolute Auto 1900 /uL (1100-4500); Lymphocytes Percent Auto 23.8 % (25-40); Mean Corpuscular HGB Conc 33.8 % (30-36); Mean Corpuscular Hemoglobin 30.5 PG (26-34); Mean Corpuscular Volume 90.4 fL (80-100); Monocytes Absolute Auto 800 /uL (0-900); Monocytes Percent Auto 9.8 % (3-14); Neutrophils Absolute Auto 5200 /uL (1500-7000); Neutrophils Percent Auto 64.2 % (50-75); Platelet Count 146 X10^3/uL (150-400); Red Blood Cell Count 5.03 X10^6/uL (4.5-5.9); Red Cell Distribution Width 14.5 % (11.6-14.8); White Blood Cell Count 8.1 X10^3/uL (4.5-11.0)
[2019-07-25 08:08] LABS: Alanine Aminotransferase 23 IU/L (<50); Albumin 3.9 g/dL (3.5-5.0); Albumin Globulin Ratio 1.3 (1.0-2.8); Alkaline Phosphatase 70 U/L (38-126); Aspartate Aminotransferase 27 IU/L (17-59); Bilirubin Total 0.9 mg/dL (0.2-1.3); Blood Urea Nitrogen 20 mg/dL (9-20); Calcium 9.2 mg/dL (8.4-10.2); Carbon Dioxide 31 mmol/L (22-32); Chloride 100 mmol/L (98-107); Cholesterol 165 mg/dL (140-199); Estimated Glomerular Filt Rate > 60.0 mL/min (>60); Glucose 102 mg/dL (80-110); HDL Cholesterol 30 mg/dL (40-60); HEMOLYSIS < 15 (0-50); LDL Cholesterol Calculated 112 mg/dL (<100); Potassium 4.8 mmol/L (3.4-5.1); Sodium 139 mmol/L (137-145); Total Protein 6.9 g/dL (6.3-8.2); Triglycerides 116 mg/dL (35-150)
[2019-07-25 08:38] LABS: Prostate Specific Antigen Scrn 0.488 ng/mL (0.1-4.0)
== END ==
PROVIDERS: PCP Family Medicine; Visit Provider Family Medicine
DX: Z00.00 Encounter for general adult medical examination without abnormal findings (principal); E78.2 Mixed hyperlipidemia; Z12.5 Encounter for screening for malignant neoplasm of prostate
CPT/HCPCS: 36415; 80053; 80061; 85025; G0103

== ENCOUNTER → 2020-04-23 09:15 | Outpatient (CLI) | payer MEDICARE, OTHER, SELFPAY ==
[2018-12-27 00:42] VITALS: BMI 25.9
[2020-04-24 18:07] LABS: COVID19 Sendout Not Detected (Not Detected)
== END ==
PROVIDERS: PCP Family Medicine; Visit Provider Physician Assistant
DX: Z03.818 Encounter for observation for suspected exposure to other biological agents ruled out (principal)
CPT/HCPCS: 87635

== ENCOUNTER → 2020-08-11 06:41 | Outpatient (CLI) | payer MEDICARE, OTHER, SELFPAY ==
[2018-12-27 00:42] VITALS: BMI 25.9
[2020-08-11 08:30] LABS: Add Manual Diff / Slide Review NO; Basophils Absolute Auto 0 /uL (0-100); Basophils Percent Auto 0.4 % (0-2); Eosinophils Absolute Auto 200 /uL (0-450); Eosinophils Percent Auto 2.9 % (2-4); Hematocrit 47.8 % (41-53); Lymphocytes Absolute Auto 2200 /uL (1100-4500); Lymphocytes Percent Auto 30.9 % (25-40); Mean Corpuscular HGB Conc 33.5 % (30-36); Mean Corpuscular Hemoglobin 30.4 PG (26-34); Mean Corpuscular Volume 90.7 fL (80-100); Monocytes Absolute Auto 800 /uL (0-900); Monocytes Percent Auto 11.3 % (3-14); Neutrophils Absolute Auto 3900 /uL (1500-7000); Neutrophils Percent Auto 54.5 % (50-75); Platelet Count 146 X10^3/uL (150-400); Red Blood Cell Count 5.27 X10^6/uL (4.5-5.9); Red Cell Distribution Width 14.4 % (11.6-14.8); White Blood Cell Count 7.2 X10^3/uL (4.5-11.0)
[2020-08-11 09:13] LABS: Alanine Aminotransferase 22 IU/L (<50); Albumin 3.8 g/dL (3.5-5.0); Albumin Globulin Ratio 1.2 (1.0-2.8); Alkaline Phosphatase 73 U/L (38-126); Aspartate Aminotransferase 23 IU/L (17-59); BUN Creatinine Ratio 22.4 (6-22); Bilirubin Total 0.7 mg/dL (0.2-1.3); Blood Urea Nitrogen 15 mg/dL (9-20); Carbon Dioxide 31 mmol/L (22-32); Chloride 104 mmol/L (98-107); Cholesterol 182 mg/dL (140-199); Estimated Glomerular Filt Rate > 60.0 mL/min (>60); Globulin 3.1 g/dL (1.7-4.1); Glucose 102 mg/dL (80-110); HDL Cholesterol 27 mg/dL (40-60); HEMOLYSIS < 15 (0-50); LDL Cholesterol Calculated 110 mg/dL (<100); Potassium 4.7 mmol/L (3.4-5.1); Sodium 138 mmol/L (137-145); Total Protein 6.9 g/dL (6.3-8.2); Triglycerides 225 mg/dL (35-150)
[2020-08-11 09:43] LABS: Prostate Specific Antigen Scrn 0.531 ng/mL (0.1-4.0)
== END ==
PROVIDERS: PCP Family Medicine; Referring Provider Family Medicine; Visit Provider Family Medicine
DX: E78.5 Hyperlipidemia, unspecified (principal); Z12.5 Encounter for screening for malignant neoplasm of prostate
CPT/HCPCS: 36415; 80053; 80061; 85025; G0103

== ENCOUNTER → 2020-10-17 14:17 | Outpatient (CLI) | payer MEDICARE, SELFPAY ==
[2018-12-27 00:42] VITALS: BMI 25.9
[2020-10-17] MEDS: COVID-19 VACC #1, MRNA(MOD) 100 MCG/0.5 ML VIAL IM (14:30)
== END ==
PROVIDERS: PCP Family Medicine; Visit Provider Internal Medicine
DX: Z23 Encounter for immunization (principal)
CPT/HCPCS: 0011A; 91301

== ENCOUNTER → 2020-11-14 14:23 | Outpatient (CLI) | payer MEDICARE, SELFPAY ==
[2018-12-27 00:42] VITALS: BMI 25.9
[2020-11-14] MEDS: COVID-19 VACC #2, MRNA(MOD) 100 MCG/0.5 ML VIAL IM (14:27)
== END ==
PROVIDERS: PCP Family Medicine; Visit Provider Internal Medicine
DX: Z23 Encounter for immunization (principal)
CPT/HCPCS: 0012A; 91301

== ENCOUNTER → 2021-08-20 15:55 | Outpatient (CLI) | payer MEDICARE, SELFPAY ==
[2018-12-27 00:42] VITALS: BMI 25.9
--- NOTE | 2021-08-20 15:56 | DI.MRI.S_ITS ---
PROCEDURE: MR HEAD/BRAIN WO/W CON INDICATIONS: migraine with aura and intermittent numbness TECHNIQUE: Noncontrast axial T1 spin echo, axial T2 fast spin echo, sagittal and axial FLAIR, coronal T2 fast spin echo, axial gradient echo, axial diffusion and ADC through the brain. After the administration of contrast, axial and coronal 3D VIBE or T1 spin echo with fat saturation through the brain. COMPARISON: None. FINDINGS: Image quality: Excellent. CSF Spaces: Basal cisterns are patent. No extra-axial fluid collections. Ventricles are normal in size and shape. Brain: No midline shift. No intracranial bleeds or masses. No abnormal intracranial enhancement. The brainstem appears normal. Diffusion-weighted images demonstrate no acute ischemic insults. No chronic ischemic insults. Normal intravascular flow voids are present. Skull and face: Calvarial marrow is normal in signal. Orbits appear normal. Sinuses: Sinuses and mastoids appear clear. IMPRESSION: Normal MRI of brain. Dictated by: Len Mahoney M.D. on 08/20/2021 at 16:20 Approved by: Len Mahoney M.D. on 08/20/2021 at 16:33
== END ==
PROVIDERS: PCP Family Medicine; Referring Provider Family Medicine; Visit Provider Family Medicine
DX: G43.109 Migraine with aura, not intractable, without status migrainosus (principal); R20.0 Anesthesia of skin
CPT/HCPCS: 70553; A9579

== ENCOUNTER → 2021-08-28 06:52 | Outpatient (CLI) | payer MEDICARE, SELFPAY ==
[2018-12-27 00:42] VITALS: BMI 25.9
[2021-08-28 08:39] LABS: Add Manual Diff / Slide Review NO; Basophils Absolute Auto 0 /uL (0-100); Basophils Percent Auto 0.3 % (0-2); Eosinophils Absolute Auto 200 /uL (0-450); Eosinophils Percent Auto 2.3 % (2-4); Hematocrit 44.4 % (41-53); Lymphocytes Absolute Auto 2100 /uL (1100-4500); Lymphocytes Percent Auto 29.4 % (25-40); Mean Corpuscular HGB Conc 33.7 % (30-36); Mean Corpuscular Hemoglobin 30.3 PG (26-34); Monocytes Absolute Auto 900 /uL (0-900); Neutrophils Absolute Auto 4000 /uL (1500-7000); Platelet Count 146 X10^3/uL (150-400); Red Blood Cell Count 4.94 X10^6/uL (4.5-5.9); Red Cell Distribution Width 14.3 % (11.6-14.8); White Blood Cell Count 7.2 X10^3/uL (4.5-11.0)
[2021-08-28 09:18] LABS: Alanine Aminotransferase 22 IU/L (<50); Albumin 3.6 g/dL (3.5-5.0); Albumin Globulin Ratio 1.2 (1.0-2.8); Alkaline Phosphatase 56 U/L (38-126); Aspartate Aminotransferase 25 IU/L (17-59); BUN Creatinine Ratio 19.5 (6-22); Bilirubin Total 0.8 mg/dL (0.2-1.3); Blood Urea Nitrogen 16 mg/dL (9-20); Calcium 9.1 mg/dL (8.4-10.2); Carbon Dioxide 30 mmol/L (22-32); Chloride 102 mmol/L (98-107); Cholesterol 167 mg/dL (140-199); Estimated Glomerular Filt Rate > 60.0 mL/min (>60); Globulin 3.1 g/dL (1.7-4.1); Glucose 104 mg/dL (80-110); HDL Cholesterol 28 mg/dL (40-60); HEMOLYSIS < 15 (0-50); LDL Cholesterol Calculated 111 mg/dL (<100); Potassium 4.6 mmol/L (3.4-5.1); Sodium 139 mmol/L (137-145); Total Protein 6.7 g/dL (6.3-8.2); Triglycerides 142 mg/dL (35-150)
[2021-08-28 09:38] LABS: Prostate Specific Antigen Scrn 0.476 ng/mL (0.1-4.0)
== END ==
PROVIDERS: PCP Family Medicine; Referring Provider Family Medicine; Visit Provider Family Medicine
DX: D69.6 Thrombocytopenia, unspecified (principal); E78.2 Mixed hyperlipidemia; Z12.5 Encounter for screening for malignant neoplasm of prostate
CPT/HCPCS: 36415; 80053; 80061; 85025; G0103

== ENCOUNTER → 2022-08-30 06:58 | Outpatient (CLI) | payer MEDICARE, SELFPAY ==
[2018-12-27 00:42] VITALS: BMI 25.9
[2022-08-30 07:56] LABS: Add Manual Diff / Slide Review NO; Basophils Absolute Auto 0 /uL (0-100); Basophils Percent Auto 0.5 % (0-2); Eosinophils Absolute Auto 200 /uL (0-450); Eosinophils Percent Auto 2.5 % (2-4); Hematocrit 45.5 % (41-53); Hemoglobin 15.4 g/dL (13.5-17.5); Lymphocytes Absolute Auto 2000 /uL (1100-4500); Lymphocytes Percent Auto 28.8 % (25-40); Mean Corpuscular HGB Conc 33.9 % (30-36); Mean Corpuscular Hemoglobin 30.1 PG (26-34); Mean Corpuscular Volume 88.7 fL (80-100); Monocytes Absolute Auto 900 /uL (0-900); Monocytes Percent Auto 12.2 % (3-14); Neutrophils Absolute Auto 4000 /uL (1500-7000); Platelet Count 124 X10^3/uL (150-400); Red Blood Cell Count 5.13 X10^6/uL (4.5-5.9); Red Cell Distribution Width 13.7 % (11.6-14.8); White Blood Cell Count 7.1 X10^3/uL (4.5-11.0)
[2022-08-30 08:15] LABS: HEMOLYSIS < 15 (0-50)
[2022-08-30 08:23] LABS: Alanine Aminotransferase 28 IU/L (<50); Albumin 3.8 g/dL (3.5-5.0); Alkaline Phosphatase 72 U/L (38-126); Aspartate Aminotransferase 26 IU/L (17-59); BUN Creatinine Ratio 24.7 (6-22); Bilirubin Total 0.6 mg/dL (0.2-1.3); Blood Urea Nitrogen 19 mg/dL (9-20); Calcium 8.7 mg/dL (8.4-10.2); Carbon Dioxide 28 mmol/L (22-32); Chloride 106 mmol/L (98-107); Cholesterol 188 mg/dL (140-199); Estimated Glomerular Filt Rate > 60 mL/min (>60); Globulin 3.7 g/dL (1.7-4.1); Glucose 96 mg/dL (80-110); HDL Cholesterol 24 mg/dL (40-60); LDL Cholesterol Calculated 125 mg/dL (<100); Potassium 4.2 mmol/L (3.4-5.1); Sodium 139 mmol/L (137-145); Total Protein 7.5 g/dL (6.3-8.2); Triglycerides 197 mg/dL (35-150)
[2022-08-30 08:50] LABS: TSH w/ Reflex to FT4 3.11 uIU/mL (0.47-4.68)
== END ==
PROVIDERS: PCP Family Medicine; Referring Provider Family Medicine; Visit Provider Family Medicine
DX: D69.6 Thrombocytopenia, unspecified (principal); E78.2 Mixed hyperlipidemia; Z12.5 Encounter for screening for malignant neoplasm of prostate; R73.9 Hyperglycemia, unspecified; Z00.00 Encounter for general adult medical examination without abnormal findings
CPT/HCPCS: 36415; 80053; 80061; 84443; 85025; G0103

== ENCOUNTER → 2022-09-06 15:54 | Outpatient (CLI) | payer MEDICARE, SELFPAY ==
[2018-12-27 00:42] VITALS: BMI 25.9
--- NOTE | 2022-09-06 15:55 | DI.US.S_ITS ---
PROCEDURE: US SCROTUM INDICATIONS: LEFT SCROTAL PAIN; HISTORY BILATERAL HERNIA REPAIR TECHNIQUE: Real-time scanning was performed of the scrotum and testicles, with image documentation. Color and pulse Doppler interrogation was performed of both testicles. COMPARISON: None. FINDINGS: Right: Testicle is normal in size at 4.3 x 1.7 x 2.4 cm, and homogenous in echotexture. Epididymis is normal in overall size and morphology. 4 mm epididymal cyst. No hydrocele or varicoceles. Overlying scrotal skin is normal in thickness. Left: Testicle is normal in size at 2.7 x 1.3 x 3.1 cm, and homogeneous in echotexture. Epididymis is normal in overall size and morphology. 9 mm epididymal cyst. Small hydrocele and no varicoceles. Overlying scrotal skin is normal in thickness. Doppler: Color and pulse Doppler demonstrate normal and symmetric arterial flow in both testicles. IMPRESSION: 1. Unremarkable appearance of the testicles bilaterally. 2. Subcentimeter bilateral epididymal cysts. 3. Small left hydrocele. Dictated by: Robert Powell [facility] Interpreted: Luiz Penny MD on 09/06/2022 at 16:31 Transcribed by: JANE on 09/06/2022 at 16:33 Approved by: Luiz Penny M.D. on 09/06/2022 at 17:54
== END ==
PROVIDERS: PCP Family Medicine; Referring Provider Family Medicine; Visit Provider Family Medicine
DX: N50.3 Cyst of epididymis (principal); N43.3 Hydrocele, unspecified; N50.812 Left testicular pain; Z98.890 Other specified postprocedural states; Z87.19 Personal history of other diseases of the digestive system
CPT/HCPCS: 76870

== ENCOUNTER → 2023-03-16 12:50 | Outpatient (CLI) | payer MEDICARE, SELFPAY ==
[2018-12-27 00:42] VITALS: BMI 25.9
--- NOTE | 2023-03-16 12:50 | DI.US.S_ITS ---
PROCEDURE: US ABDOMEN LIMITED INDICATIONS: LEFT INGUINAL PAIN TECHNIQUE: Real-time focused scanning was performed of the abdomen, with image documentation. COMPARISON: None. FINDINGS: The left inguinal region was interrogated with a high megahertz linear transducer with without Valsalva. No hernia and no mass identified. IMPRESSION: Unremarkable left inguinal ultrasound. No hernia noted. Dictated by: Man Pulliam M.D. on 03/16/2023 at 17:31 Approved by: Man Pulliam M.D. on 03/16/2023 at 17:31
== END ==
PROVIDERS: PCP Family Medicine; Referring Provider Family Medicine; Visit Provider Family Medicine
DX: R10.32 Left lower quadrant pain (principal); Z98.890 Other specified postprocedural states; Z87.19 Personal history of other diseases of the digestive system
CPT/HCPCS: 76705

== ENCOUNTER → 2023-08-19 06:56 | Outpatient (CLI) | payer MEDICARE, SELFPAY ==
[2018-12-27 00:42] VITALS: BMI 25.9
[2023-08-19 08:15] LABS: Add Manual Diff / Slide Review NO; Basophils Absolute Auto 0 /uL (0-100); Basophils Percent Auto 0.4 % (0-2); Eosinophils Absolute Auto 100 /uL (0-450); Eosinophils Percent Auto 2.5 % (2-4); Hematocrit 44.4 % (41-53); Hemoglobin 14.9 g/dL (13.5-17.5); Lymphocytes Absolute Auto 1700 /uL (1100-4500); Lymphocytes Percent Auto 29.3 % (25-40); Mean Corpuscular HGB Conc 33.7 % (30-36); Mean Corpuscular Hemoglobin 30.3 PG (26-34); Mean Corpuscular Volume 90.1 fL (80-100); Monocytes Absolute Auto 700 /uL (0-900); Monocytes Percent Auto 12.2 % (3-14); Neutrophils Absolute Auto 3300 /uL (1500-7000); Neutrophils Percent Auto 55.6 % (50-75); Platelet Count 143 X10^3/uL (150-400); Red Blood Cell Count 4.93 X10^6/uL (4.5-5.9); Red Cell Distribution Width 14.9 % (11.6-14.8); White Blood Cell Count 5.9 X10^3/uL (4.5-11.0)
[2023-08-19 08:32] LABS: Alanine Aminotransferase 23 IU/L (<50); Albumin 3.6 g/dL (3.5-5.0); Albumin Globulin Ratio 1.1 (1.0-2.8); Alkaline Phosphatase 64 U/L (38-126); Aspartate Aminotransferase 26 IU/L (17-59); BUN Creatinine Ratio 31.4 (6-22); Bilirubin Total 0.9 mg/dL (0.2-1.3); Blood Urea Nitrogen 22 mg/dL (9-20); Carbon Dioxide 28 mmol/L (22-32); Chloride 102 mmol/L (98-107); Cholesterol 185 mg/dL (140-199); Estimated Glomerular Filt Rate > 60 mL/min (>60); Globulin 3.4 g/dL (1.7-4.1); Glucose 103 mg/dL (80-110); HDL Cholesterol 30 mg/dL (40-60); HEMOLYSIS < 15 (0-50); LDL Cholesterol Calculated 124 mg/dL (<100); Potassium 4.6 mmol/L (3.4-5.1); Sodium 137 mmol/L (137-145); Triglycerides 155 mg/dL (35-150)
[2023-08-19 09:00] LABS: Prostate Specific Antigen Scrn 0.575 ng/mL (0.1-4.0)
[2023-08-19 09:04] LABS: TSH w/ Reflex to FT4 2.89 uIU/mL (0.47-4.68)
[2023-08-20 08:02] LABS: Apolipoprotein B 108 mg/dL (<90)
== END ==
PROVIDERS: PCP Family Medicine; Referring Provider Family Medicine; Visit Provider Family Medicine
DX: E78.5 Hyperlipidemia, unspecified (principal); Z12.5 Encounter for screening for malignant neoplasm of prostate; G43.109 Migraine with aura, not intractable, without status migrainosus; M54.50 Low back pain, unspecified; G89.29 Other chronic pain; R73.9 Hyperglycemia, unspecified; D69.6 Thrombocytopenia, unspecified; Z00.00 Encounter for general adult medical examination without abnormal findings
CPT/HCPCS: 36415; 80053; 80061; 82172; 84443; 85025; G0103

== ENCOUNTER 2024-01-10 08:34 | Day surgery (SDC) | payer MEDICARE, SELFPAY ==
[2018-12-27 00:42] VITALS: BMI 25.9
[2024-01-10] VITALS (7 sets, daily range): BP systolic 108–144; BP diastolic 62–76; PULSE 56–64; RESP 12–15; TEMP 36.1–36.3; O2SAT 97–99
[2024-01-10] MEDS: LACTATED RINGERS 1,000 ML 42 ML IV (09:21)
--- NOTE | 2024-01-10 09:52 | PM.HP.1 ---
History of Present Illness History of Present Illness Date Patient Seen: 01/10/24 Time Patient Seen: 09:52 Chief complaint: Screening Colonoscopy Narrative: Esvin is a 78-year-old man with a history of polyps here for screening colonoscopy. Last colonoscopy 2008. No family history of intestinal malignancy. No abdominal concerns today. [facility] Medical History Bilateral hearing loss Chronic low back pain Hyperlipidemia Fracture of femur Migraines (~1979) Eczema Chicken pox (~1952) Surgical History Anesthesia Status post colonoscopy Status post laparoscopy (~1999) Status post laparoscopy (~1979) Status post hernia repair (~1960) Family History Father Cancer Heart disease Mother Hypertension High cholesterol Social History household members: spouse Smoking Status: Never smoker alcohol intake: never Meds Home Medications and Allergies Home Medications Medication Instructions Recorded Confirmed Type rosuvastatin 5 mg tablet (Crestor) 5 mg PO DAILY #90 tabs 08/23/23 01/10/24 Rx Allergies Allergy/AdvReac Type Severity Reaction Status Date / Time No Known Drug Allergies Allergy Verified 01/10/24 09:04 Exam Vital Signs (past 8 hours): - 01/10/24 09:11 Temperature 97.3 F L Pulse Rate 56 L Respiratory Rate 12 Blood Pressure 144/76 H Pulse Oximetry 97 Oxygen Delivery Method Room Air Oxygen Delivery Method Room Air Narrative Exam Narrative: General adult man alert oriented no acute distress Chest nonlabored respiration Extremities warm well perfused Assessment & Plan Assessment & Plan narrative: The patient requires colorectal screening and colonoscopy is recommended. Technical details were discussed. Risks, benefits, alternatives explained. Risks including but not limited to myocardial infarction, aspiration, bleeding, pain, missed lesion, incomplete examination, need for further radiographic studies, intestinal injury, and need for major abdominal surgery were discussed. All questions were answered to their satisfaction, and they are in agreement with this plan.
--- NOTE | 2024-01-10 09:53 | P.OP.COLON_ITS ---
Operative Date/Time/Diagnoses Date of procedure: 01/10/24 Time of procedure: 09:53 Pre-op diagnosis: Personal history of colonic polyps Procedure & Clinicians Study performed: Colonoscopy Same procedure as scheduled: Yes Indications: Colorectal screening Surgeon: Venkat Mendez Procedure Notes Procedure in detail: The history and physical was performed/updated and the patient is ASA class is 2. The procedure was discussed in detail with the patient. Potential risks complications including infection, bleeding, missed diagnosis, perforation, need for surgery, and were explained. Their questions were answered and informed consent was obtained. Patient was brought to the procedure room and placed standard monitoring equipment. The patient's vital signs were monitored continuously throughout the entire procedure. Prior to starting time-out was performed. The patient was placed in the left lateral recumbent position. Procedural sedation was administered by anesthesia. Examination began with a thorough inspection of the perianal area there was no evidence of fissures, fistulae, external hemorrhoids or cutaneous malignancy. The colonoscopy scope was then placed into the anal canal and was advanced to the cecum, which was identified by the ileocecal valve, the appendiceal orifice and the confluence of the taenia. The scope was then slowly withdrawn examining colon thoroughly in all directions, irrigating it of any residual stool. The scope was retroflexed within the rectum The patient tolerated the procedure well. They will be discharged once criteria are met. The prep was of good/excellent quality. The withdrawl time was 7 minutes. FINDINGS * Unremarkable colonoscopy. No masses polyps or inflammation. Specimen(s): none sent Impression: Normal colonoscopy Post-procedure Plan for aftercare: No further colonoscopy necessary unless symptomatic Disposition: same day surgery
== END 2024-01-10 11:12 | disposition home or self-care (01) ==
PROVIDERS: PCP Family Medicine; Referring Provider Surgery; Visit Provider Surgery
PROC: 0DJD8ZZ Inspection of Lower Intestinal Tract, Via Natural or Artificial Opening Endoscopic (ICD-10-PCS; CPT 45378; principal; 2024-01-10 09:45)
DX: Z12.11 Encounter for screening for malignant neoplasm of colon (principal); Z86.010 Personal history of colon polyps
CPT/HCPCS: G0105; J2704

== ENCOUNTER → 2024-05-31 06:54 | Outpatient (CLI) | payer MEDICARE, SELFPAY ==
[2018-12-27 00:42] VITALS: BMI 25.9
[2024-05-31 08:01] LABS: Alanine Aminotransferase 24 IU/L (<50); Albumin 3.8 g/dL (3.5-5.0); Albumin Globulin Ratio 1.2 (1.0-2.8); Alkaline Phosphatase 64 U/L (38-126); Aspartate Aminotransferase 27 IU/L (17-59); Bilirubin Total 0.7 mg/dL (0.2-1.3); Blood Urea Nitrogen 17 mg/dL (9-20); Calcium 9.3 mg/dL (8.4-10.2); Carbon Dioxide 28 mmol/L (22-32); Chloride 104 mmol/L (98-107); Cholesterol 143 mg/dL (140-199); Estimated Glomerular Filt Rate > 60 mL/min (>60); Globulin 3.2 g/dL (1.7-4.1); Glucose 112 mg/dL (80-110); HDL Cholesterol 35 mg/dL (40-60); HEMOLYSIS < 15 (0-50); LDL Cholesterol Calculated 73 mg/dL (<100); Potassium 4.7 mmol/L (3.4-5.1); Sodium 137 mmol/L (137-145); Triglycerides 174 mg/dL (35-150)
[2024-06-01 03:36] LABS: Apolipoprotein B 81 mg/dL (<90)
== END ==
PROVIDERS: PCP Family Medicine; Referring Provider Family Medicine; Visit Provider Family Medicine
DX: E78.2 Mixed hyperlipidemia (principal)
CPT/HCPCS: 36415; 80053; 80061; 82172

== ENCOUNTER → 2025-01-09 06:55 | Outpatient (CLI) | payer MEDICARE, SELFPAY ==
[2018-12-27 00:42] VITALS: BMI 25.9
[2025-01-09 08:03] LABS: Add Manual Diff / Slide Review NO; Basophils Absolute Auto 0 /uL (0-100); Basophils Percent Auto 0.4 % (0-2); Eosinophils Absolute Auto 200 /uL (0-450); Eosinophils Percent Auto 2.8 % (2-4); Hematocrit 42.4 % (41-53); Hemoglobin 14.5 g/dL (13.5-17.5); Lymphocytes Absolute Auto 1700 /uL (1100-4500); Mean Corpuscular HGB Conc 34.1 % (30-36); Mean Corpuscular Hemoglobin 30.7 PG (26-34); Monocytes Absolute Auto 700 /uL (0-900); Monocytes Percent Auto 10.8 % (3-14); Neutrophils Absolute Auto 3600 /uL (1500-7000); Platelet Count 111 X10^3/uL (150-400); Red Blood Cell Count 4.71 X10^6/uL (4.5-5.9); Red Cell Distribution Width 14.4 % (11.6-14.8); White Blood Cell Count 6.2 X10^3/uL (4.5-11.0)
[2025-01-09 08:09] LABS: Hemoglobin A1C% w Est Avg Glu 5.2 % (4.0-6.0)
[2025-01-09 08:24] LABS: Alanine Aminotransferase 25 IU/L (<50); Albumin 3.7 g/dL (3.5-5.0); Albumin Globulin Ratio 1.3 (1.0-2.8); Alkaline Phosphatase 64 U/L (38-126); Aspartate Aminotransferase 32 IU/L (17-59); BUN Creatinine Ratio 35.7 (6-22); Blood Urea Nitrogen 25 mg/dL (9-20); Calcium 8.6 mg/dL (8.4-10.2); Carbon Dioxide 25 mmol/L (22-32); Chloride 107 mmol/L (98-107); Cholesterol 113 mg/dL (140-199); Estimated Glomerular Filt Rate > 60 mL/min (>60); Globulin 2.8 g/dL (1.7-4.1); Glucose 103 mg/dL (70-99); HDL Cholesterol 35 mg/dL (40-60); HEMOLYSIS 19 (0-50); LDL Cholesterol Calculated 58 mg/dL (<100); Potassium 4.3 mmol/L (3.4-5.1); Sodium 136 mmol/L (137-145); Total Protein 6.5 g/dL (6.3-8.2); Triglycerides 101 mg/dL (35-150)
[2025-01-09 08:51] LABS: Prostate Specific Antigen Scrn 0.387 ng/mL (0.1-4.0)
[2025-01-09 08:53] LABS: TSH w/ Reflex to FT4 2.82 uIU/mL (0.47-4.68)
== END ==
PROVIDERS: PCP Family Medicine; Referring Provider Family Medicine; Visit Provider Family Medicine
DX: E78.5 Hyperlipidemia, unspecified (principal); R73.9 Hyperglycemia, unspecified; Z12.5 Encounter for screening for malignant neoplasm of prostate; G43.109 Migraine with aura, not intractable, without status migrainosus; G89.29 Other chronic pain; M54.50 Low back pain, unspecified
CPT/HCPCS: 36415; 80053; 80061; 83036; 84443; 85025; G0103

== ENCOUNTER → 2025-09-05 07:02 | Outpatient (CLI) | payer MEDICARE, SELFPAY ==
[2018-12-27 00:42] VITALS: BMI 25.9
[2025-09-05 07:49] LABS: Add Manual Diff / Slide Review NO; Hematocrit 44.9 % (41-53); Hemoglobin 15.3 g/dL (13.5-17.5); Lymphocytes Absolute Auto 1900 /uL (1100-4500); Mean Corpuscular HGB Conc 34.0 % (30-36); Mean Corpuscular Hemoglobin 30.3 PG (26-34); Mean Corpuscular Volume 88.9 fL (80-100); Platelet Count 126 X10^3/uL (150-400)
[2025-09-05 08:13] LABS: Alanine Aminotransferase 28 IU/L (<50); Albumin 3.7 g/dL (3.5-5.0); Albumin Globulin Ratio 1.2 (1.0-2.8); Alkaline Phosphatase 63 U/L (38-126); Blood Urea Nitrogen 22 mg/dL (9-20); Calcium 9.0 mg/dL (8.4-10.2); Carbon Dioxide 25 mmol/L (22-32); Chloride 108 mmol/L (98-107); Cholesterol 114 mg/dL (140-199); Estimated Glomerular Filt Rate > 60 mL/min (>60); Globulin 3.0 g/dL (1.7-4.1); Glucose 113 mg/dL (70-99); HDL Cholesterol 37 mg/dL (40-60); HEMOLYSIS < 15 (0-50); Potassium 4.2 mmol/L (3.4-5.1); Sodium 139 mmol/L (137-145); Total Protein 6.7 g/dL (6.3-8.2); Triglycerides 129 mg/dL (35-150)
[2025-09-05 08:42] LABS: TSH w/ Reflex to FT4 2.77 uIU/mL (0.47-4.68)
== END ==
PROVIDERS: PCP Family Medicine; Referring Provider Family Medicine; Visit Provider Family Medicine
DX: E78.2 Mixed hyperlipidemia (principal); I25.10 Atherosclerotic heart disease of native coronary artery without angina pectoris
CPT/HCPCS: 36415; 80053; 80061; 82172; 84443; 85025